=== PATIENT | female | born 1945 | race Caucasian/White ===

== ENCOUNTER 2017-11-09 13:24 | Inpatient (IN) | payer BC, MEDICARE ==
[2017-11-09] MEDS ORDERED: Diltiazem 125 MG in Sodium Chloride 0.9% 100 ML IVPB SCH ×2 (14:15→17:00)
[2017-11-09] MEDS ORDERED: Acetaminophen 325 MG TAB PO PRN ×2 (15:39→20:30)
[2017-11-09] MEDS ORDERED: Dextrose 5% in Water 1,000 ML IV PRN ×2 (15:39→20:30)
[2017-11-09] MEDS ORDERED: Dextrose 50% Abboject 50 ML SYRINGE SLOW IVP PRN ×2 (15:39→20:30)
[2017-11-09] MEDS ORDERED: HumaLOG 300 UNITS/3 ML VIAL SC PRN ×4 (15:39→20:31)
[2017-11-09] MEDS ORDERED: Senokot 8.6 MG TAB PO PRN (15:39)
[2017-11-09] MEDS ORDERED: Guaifenesin DM 100-10/5 ML UDCUP PO PRN ×2 (15:39→20:30)
[2017-11-09] MEDS ORDERED: Enoxaparin Sodium 60 MG/0.6 ML SYRINGE SC STA (15:45)
[2017-11-09 16:33] LABS: #Basophils 0.1 thou/uL (0.0-0.2); #Eosinphils 0.2 thou/uL (0.0-0.7); #Lymphocytes 2.8 thou/uL (1.20-3.40); #Monocytes 0.5 thou/uL (0.11-0.59); %Basophils 1.4 % (0.0-1.0); %Eosinophils 2.4 % (0.0-10.0); %Lymphocytes 42.7 % (21.0-51.0); %Monocytes 8.1 % (0.0-10.0); %Neutrophils 45.3 % (42.0-75.0); Hemoglobin 11.3 g/dL (12.0-16.0); Mean Corpuscular HGB CONC 32.1 g/dL (32.0-36.0); Mean Corpuscular Hemoglobin 27.2 pg (27.0-31.0); Mean Corpuscular Volume 84.7 fl (81.0-99.0); Mean Platelet Volume 8.4 fL (7.4-10.4); Platelet Count 238 thou/uL (130-400); RBC Distribution Width 15.2 % (11.5-14.5); Red Blood Cell (RBC) Count 4.16 mill/uL (4.20-5.40); White Blood Cell (WBC) Count 6.5 thou/uL (4.8-10.8)
[2017-11-09 16:39] LABS: INR-International Normal Ratio 0.9; PTT 24.5 SEC (22.9-36.1); Prothrombin Time 12.5 SEC (12.0-14.7)
[2017-11-09] MEDS ORDERED: Enoxaparin Sodium 80 MG/0.8 ML SYRINGE SC SCH (17:15)
--- NOTE | 2017-11-09 17:51 | HP ---
REASON FOR ADMISSION: Atrial flutter. HISTORY OF PRESENT ILLNESS: The patient gives history of having gone for cataract surgery yesterday at [facility] in [place]. Prior to her cataract procedure, they found her heart rate to be 134. She had an EKG done, which showed it to be atrial flutter. She was sent to [facility] Emergency Room. From there, she was sent to see her primary care physician for further workup and Cardiology consultation. Patient went to see Dr. Gagnon this morning. She was soon sent to [facility] for atrial flutter with RVR. Her ventricular rate was in the 130s, and was given Cardizem IV push and was placed on 5 mg-an-hour Cardizem and was transferred here to [facility] ER. No complaints of chest pain, palpitation, PND or orthopnea. She has no complaints of fever, cough, or expectoration. No prior cardiac workup including a stress test. PAST MEDICAL AND SURGICAL HISTORY: Hypertension, dyslipidemia, diabetes mellitus type 2, obesity, osteoarthritis, bilateral knee replacements, bilateral breast reduction surgery, appendectomy, tubal ligation, cystocele and rectocele repair, multiple skin cancers being removed, and a colonoscopy done at the age of 63 years was normal. CURRENT MEDICATIONS: Patient is on metformin 1 gram twice daily, losartan daily , Zocor daily. She takes a pill for osteoarthritis, which she cannot recall. [place] 3 fatty acids 1 tab daily. ALLERGIES: NEOSPORIN with which it breaks out in a rash. SOCIAL HISTORY: Does not abuse alcohol or drugs. No history of smoking. She lives by herself. FAMILY HISTORY: Mother in her 80s. She has had a history of heart failure , stroke and also had a PEG tube due to stroke. Father of massive OR at the age of 65 years. REVIEW OF SYSTEMS: The following complete review of systems was negative, unless otherwise mentioned in the HPI or below: Constitutional: Weight loss or gain, ability to conduct usual activities. Skin: Rash, itching. Eyes: Double vision, pain. ENT/Mouth: Nose bleeding, neck stiffness, pain, tenderness. Cardiovascular: Palpitations, dyspnea on exertion, orthopnea. Respiratory: Shortness of breath, wheezing, cough, hemoptysis, fever or night sweats. Gastrointestinal: Poor appetite, abdominal pain, heartburn, nausea, vomiting, constipation, or diarrhea. Genitourinary: Urgency, frequency, dysuria, nocturia. Musculoskeletal: Pain, swelling. Neurologic/Psychiatric: Anxiety, depression. Allergy/Immunologic: Skin rash, bleeding tendency. PHYSICAL EXAMINATION: GENERAL: The patient is a 72-year-old female who is currently not in any acute distress. VITAL SIGNS: Blood pressure 120/84, pulse 130 per minute, respiratory rate 16 per minute, temperature 97.9 degrees Fahrenheit, saturating 96% on room air. NECK: Supple, no elevated JVD. HEENT: Extraocular muscles intact. Pupils are reacting to light. Oral cavity , mucous membranes are moist. No exudates or congestion. CARDIOVASCULAR: S1, S2 heard. Irregular rhythm. RESPIRATORY: Air entry 1+ bilaterally. No rales or rhonchi. ABDOMEN: Soft, bowel sounds heard. No tenderness, rigidity or guarding. EXTREMITIES: No peripheral edema or calf tenderness. VASCULAR SYSTEM: Peripheral pulses 1+ bilateral. No ischemic ulcerations or gangrene. CENTRAL NERVOUS SYSTEM: No gross focal deficits seen. Patient is alert, awake , oriented well. PSYCHIATRIC: Patient's mood is euthymic. No hallucinations or delusions. LABORATORY AND X-RAY FINDINGS: EKG done shows atrial flutter with 2:1 block at 133 beats per minute. Chest x-ray shows mild cardiomegaly; otherwise no acute infiltrate. BNP is 140. First set of cardiac enzymes are negative. TSH 1.18. Albumin is 3.9. Magnesium is 1.8. Liver enzymes within normal limits. BUN 17, creatinine 0.7. Electrolytes are stable. There is no CBC or coags done. CLINICAL IMPRESSION AND PLAN: Patient will be admitted to telemetry for new- onset atrial flutter with rapid ventricular response. We will obtain an echo with 2D Doppler and keep her n.p.o. after midnight. I have discussed her findings with Dr. Brown who will plan on doing ablation in the morning. One dose of Lovenox 90 mg subcu will be given now. She will be on aspirin 81 mg daily. She is currently on 7.5 mg per hour of Cardizem drip and will continue the same. A small dose of Lopressor 12.5 mg twice daily will be given as well. Patient most likely will need outpatient cardiac workup including stress test due to multiple risk factors with Dr. Ovalle as an outpatient. His office will call the patient in 4-6 weeks once she is stable from her flutter for now. We will continue to closely monitor her on telemetry floor. NANCY
[2017-11-09 18:22] VITALS: BMI 40.2
[2017-11-09 18:51] LABS: #Basophils 0.1 thou/uL (0.0-0.2); #Eosinphils 0.2 thou/uL (0.0-0.7); #Lymphocytes 2.8 thou/uL (1.20-3.40); #Monocytes 0.5 thou/uL (0.11-0.59); %Basophils 1.8 % (0.0-1.0); %Eosinophils 2.4 % (0.0-10.0); %Lymphocytes 42.3 % (21.0-51.0); %Neutrophils 45.5 % (42.0-75.0); Hemoglobin 11.1 g/dL (12.0-16.0); Mean Corpuscular HGB CONC 31.6 g/dL (32.0-36.0); Mean Corpuscular Hemoglobin 26.7 pg (27.0-31.0); Mean Corpuscular Volume 84.6 fl (81.0-99.0); Mean Platelet Volume 8.4 fL (7.4-10.4); Platelet Count 239 thou/uL (130-400); RBC Distribution Width 15.1 % (11.5-14.5); Red Blood Cell (RBC) Count 4.14 mill/uL (4.20-5.40); White Blood Cell (WBC) Count 6.5 thou/uL (4.8-10.8)
[2017-11-09] MEDS ORDERED: Prevnar 13-Val Conj/PF 0.5 ML SYRINGE IM ONE (19:00)
[2017-11-09 19:10] LABS: Anion Gap 10 mmol/L (10-20); BUN (Urea Nitrogen) 15 mg/dL (9.8-20.1); Calc. Creatinine Clearance 99 mL/min (70-130); Calcium 9.9 mg/dL (7.8-10.44); Carbon Dioxide 25 mmol/L (23-31); Chloride 107 mmol/L (98-107); Estimated GFR-MDRD 83; Glucose 104 mg/dL (83-110); PTT 25.1 SEC (22.9-36.1); Prothrombin Time 12.8 SEC (12.0-14.7); Sodium 138 mmol/L (136-145)
--- NOTE | 2017-11-09 20:00 | CON-2 ---
DATE OF CONSULTATION: 11/09/2017 RESIDENT: Melina Lorenzana M.D., PGY-2. ATTENDING: Parth Ovalle M.D. REASON FOR CONSULTATION: New onset atrial flutter. HISTORY OF PRESENT ILLNESS: The patient is a 72-year-old female with past history of hypertension, diabetes, and hyperlipidemia, who was incidentally noted to have atrial flutter on a preoperative evaluation for cataract surgery performed at an outside hospital yesterday. The patient was noted to have a pulse in the 130s. She was completely asymptomatic at this time. She denied any chest pain/pressure, dyspnea, diaphoresis, palpitations. She was transferred from the outside hospital to [facility] Emergency Department where she was given IV Cardizem which did improve her heart rate. She was discharged from the emergency department and instructed to follow up with her primary care provider the following day. At her primary care provider's office today, her pulse was noted to be 136. She was still asymptomatic at this time. She was directed to the [place] Emergency Department where she was given a bolus of Cardizem and started on a Cardizem drip. She was then transferred here. She received another Cardizem bolus and was started on a Cardizem drip at a rate of 5, which she is currently on. Her heart rate is controlled and she remains asymptomatic PAST MEDICAL HISTORY: 1. Diabetes mellitus type 2. 2. Hypertension. 3. Hyperlipidemia. 4. Osteoarthritis. 5. Gastroesophageal reflux disease. 6. Allergic rhinitis. 7. History of skin cancer, status post excision. ALLERGIES: NEOSPORIN, which causes blistering. MEDICATIONS: 1. Omeprazole 20 mg daily. 2. Calset plus. 3. Fish oil 2000 mg daily. 4. Colace 300 mg daily. 5. Biotin 1 mg q.a.m. 6. Multivitamin. 7. Simvastatin 20 mg daily. 8. Ana 180 mg daily p.r.n. 9. Metformin 1000 mg p.o. b.i.d. 10. Alendronate 70 mg weekly. 11. Losartan 50 mg daily. PAST SURGICAL HISTORY: 1. Bilateral total knee arthroplasty. 2. Oral surgery. 3. Appendectomy. 4. Breast reduction. 5. Panniculectomy. SOCIAL HISTORY: The patient denies tobacco, alcohol, and drug use. 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 REVIEW OF SYSTEMS: Ten point review of systems is negative aside from what is listed in the history of present illness. PHYSICAL EXAMINATION: VITAL SIGNS: Temperature 97.8, blood pressure 113/67, pulse 73, respirations 17 , pulse ox 96% on room air. GENERAL: The patient is alert and oriented x3, in no apparent distress. HEENT: Extraocular muscles are intact. NECK: Supple. No thyromegaly. CARDIOVASCULAR: Irregular rhythm, regular rate. No murmurs, rubs or gallops. Radial pulses 2+. LUNGS: Clear to auscultation bilaterally. ABDOMEN: Soft, nontender to palpation. No organomegaly. EXTREMITIES: No cyanosis or peripheral edema. MUSCULOSKELETAL: Normal bulk and tone. NEUROLOGIC: Cranial nerves II-XII intact grossly. LABORATORY DATA: 1. CMP: Sodium 140, potassium 4.3, chloride 106, carbon dioxide 24, BUN 17, creatinine 0.73, glucose 106, calcium 9.5, phosphorus 2.2, magnesium 1.8, total bilirubin 0.3, AST 16, ALT 18, alkaline phosphatase 58. BNP 140.3, total protein 7.1, albumin 3.9, globulin 3.2, TSH 1.1855. 2. Cardiac enzymes: CK-MB 1.2, troponin less than 0.010. 3. Coagulation panel: PT 13.0, INR 1.0, PTT 23.6. EKG consistent with atrial flutter. ASSESSMENT AND PLAN: The patient is a 72-year-old asymptomatic female with a history of hypertension, hyperlipidemia, diabetes, who presents with new onset atrial flutter. Atrial flutter: We will give the patient one dose of p.o. Cardizem 180 mg now and titrate the patient off of the cardizem drip. Electrophysiology has been consulted and plan is for ablation tomorrow. Given that the patient has a CHADS VASC score of 4, we will initiate anticoagulation with therapeutic Lovenox. Cardiology will continue to follow the patient during her hospitalization. [facility] MED[facility] CENTERPeyton
[2017-11-09] MEDS ORDERED: Famotidine 20 MG TAB PO SCH (21:00)
[2017-11-09] MEDS: Famotidine 20 MG TAB PO SCH (21:24)
[2017-11-09] MEDS: Senokot 8.6 MG TAB PO PRN (21:25)
[2017-11-10 05:42] LABS: Free T4 (Free Thyroxine) 1.05 ng/dL (0.70-1.48)
[2017-11-10] MEDS: Famotidine 20 MG TAB PO SCH ×2 (06:12→21:30)
[2017-11-10] MEDS ORDERED: PHENYLEPHRINE-NS 100 MCG/ML 10 ML SYRINGE ONE (13:56)
--- NOTE | 2017-11-10 14:46 | PDOC.PN ---
- Subjective Encounter Start Date: 11/10/17 Encounter Start Time: 09:00 Subjective: no c/o palp or chest pain - Objective Resuscitation Status: Resuscitation Status FULL:Full Resuscitation MAR Reviewed: Yes Vital Signs & Weight: Vital Signs (12 hours) Temp Pulse Resp BP Pulse Ox 11/10/17 11:49 97.9 F 65 18 135/65 95 11/10/17 08:00 98 F 69 18 95 11/10/17 07:35 98 F 69 18 115/59 L 95 11/10/17 04:00 98.3 F 89 20 124/60 95 Weight Weight 192 lb 3.2 oz I&O: 11/09/17 11/10/17 11/11/17 06:59 06:59 06:59 Intake Total 1059 Output Total 1175 Balance -116 Result Diagrams: 11/09/17 18:25 11/09/17 18:25 Additional Labs: Accuchecks 11/10/17 11/10/17 11/09/17 11:36 06:33 19:52 POC Glucose 124 H 143 H 144 H 11/09/17 18:29 POC Glucose 119 H Phys Exam - Physical Examination HEENT: PERRLA, moist MMs Neck: no JVD, supple Respiratory: no wheezing, no rales Cardiovascular: RRR, no significant murmur Gastrointestinal: soft, non-tender, positive bowel sounds Musculoskeletal: no edema, pulses present Neurological: non-focal, moves all 4 limbs Psychiatric: A&O x 3 Dx/Plan (1) Atrial flutter Code(s): I48.92 - UNSPECIFIED ATRIAL FLUTTER Status: Acute (2) DM type 2 (diabetes mellitus, type 2) Status: Chronic Qualifiers: Diabetes mellitus complication status: with unspecified complications Diabetes mellitus halfway insulin use: without survey manager use Qualified Code( s): E11.8 - Type 2 diabetes mellitus with unspecified complications (3) HTN (hypertension) Code(s): I10 - ESSENTIAL (PRIMARY) HYPERTENSION Status: Chronic Qualifiers: Hypertension type: essential hypertension Qualified Code(s): I10 - Essential (primary) hypertension (4) Dyslipidemia Code(s): E78.5 - HYPERLIPIDEMIA, UNSPECIFIED Status: Chronic (5) Obesity Code(s): E66.9 - OBESITY, UNSPECIFIED Status: Chronic Qualifiers: Body mass index: BMI 40.0-44.9 - Plan for EP studies and possible ablation -: got one dose lovenox last night -: post procedure will start newer anticoagulants -: echo pending, will get SCOTT prior to EPS -: hemostable, is on cardizem drip * . Review of Systems - Medications/Allergies Allergies/Adverse Reactions: Allergies Allergy/AdvReac Type Severity Reaction Status Date / Time bacitracin Allergy Verified 11/09/17 14:06 Medications: Current Medications Acetaminophen (Tylenol) 650 mg PO Q4H PRN PRN Reason: Headache/Fever or Pain Last Admin: 11/09/17 21:25 Dose: 650 mg Dextrose/Water (Dextrose 50%) 25 gm SLOW IVP PRN PRN PRN Reason: Hypoglycemia Famotidine (Pepcid) 20 mg PO BID DALE Last Admin: 11/10/17 06:12 Dose: 20 mg Glucagon (Glucagon) 1 mg IM PRN PRN PRN Reason: Hypoglycemia Guaifenesin/Dextromethorphan (Robitussin Dm) 15 ml PO Q4H PRN PRN Reason: Cough Diltiazem HCl 125 mg/ Sodium (Chloride) 125 mls @ 7.5 mls/hr IVPB INF DALE; 7.5 MG/HR PRN Reason: Protocol Dextrose/Water (D5w) 1,000 mls @ 0 mls/hr IV .Q0M PRN; As Directed PRN Reason: Hypoglycemia Insulin Human Lispro (Humalog) 0 units SC .MODERATE SLIDING SC PRN PRN Reason: Moderate Correctional Scale Insulin Human Lispro (Humalog) 0 units SC .BEDTIME SLIDING SC PRN PRN Reason: Bedtime Correctional Scale Senna (Senokot) 2 tab PO HSPRN PRN PRN Reason: Constipation Last Admin: 11/09/17 21:25 Dose: 2 tab Sodium Chloride (Flush - Normal Saline) 10 ml IVF Q12HR DALE Last Admin: 11/10/17 08:56 Dose: Not Given Sodium Chloride (Flush - Normal Saline) 10 ml IVF PRN PRN PRN Reason: Saline Flush
[2017-11-10] MEDS ORDERED: Heparin 10,000 UNITS/1 ML VIAL ONE (15:40)
[2017-11-10] MEDS ORDERED: Propofol 500 MG/50 ML VIAL ONE (15:41)
[2017-11-10] MEDS ORDERED: Fentanyl 100 MCG/2 ML VIAL ONE ×2 (15:41→16:17)
[2017-11-10] MEDS ORDERED: Midazolam HCl 2 mg/2 ml Vial ONE (16:17)
[2017-11-10] MEDS ORDERED: Ketamine 50 MG/ML VIAL ONE (16:18)
[2017-11-10] MEDS ORDERED: DOPamine 400 MG/D5W 250 ML 250 ML ONE (17:19)
--- NOTE | 2017-11-10 18:09 | CON ---
DATE OF CONSULTATION: 11/09/2017 ELECTROPHYSIOLOGY CONSULTATION REPORT REFERRING PHYSICIAN: Dr. Charmaine Murphy HISTORY: I am seeing Ms. 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 Her problems are: 1. Newly found atrial flutter with rapid ventricular rates. 2. No prior history of coronary artery disease or heart attack. 3. Coronary artery receptors. A. Hypertension. B. Hyperlipidemia. C. Type 2 diabetes. D. Elevated BMI. 4. History of gastroesophageal reflux disease. ALLERGIES: NEOSPORIN, CODEINE. MEDICATIONS: At home include plus fish oil, Colace, Biotin, multivitamin , simvastatin, Ana, metformin, alendronate, losartan. SUBJECTIVE: Ms. Blake is here due to she was found to be in rapid flutter at the time of upcoming glaucoma surgery, she was hence canceled and she was referred to us. Her rates were rapid in the ER and she was placed on Cardizem drip. Her rate improved with that. She only has had mild symptoms. She has mild chronic dyspnea, but not any worse than usual. She has no significant sensational palpitations, no dizziness or loss of consciousness. No stroke- like symptoms, no fever, chills or cough. The rest of the 12 point system also overall unremarkable apart from the visual blurring, for hence glaucoma. SOCIAL HISTORY: The patient denies smoking, ETOH or drug abuse. FAMILY HISTORY: Noncontributory. PAST SURGICAL HISTORY: Significant for bilateral knee arthroplasty, oral surgery, appendectomy, breast reduction surgery, and hemicolectomy. PAST MEDICAL HISTORY: Allergic rhinitis, GERD, history of skin cancer, status post resection, osteoarthritis. OBJECTIVE: VITAL SIGNS: Blood pressure is initially 130/67, heart rates are 73 went to 139 at times, respirations 15, oxygen saturation is 96% on room air. GENERAL: She is alert and oriented woman in no apparent distress. NECK: Supple. Jugular veins are not distended. CHEST: Coarse without crackles. CARDIOVASCULAR: Heart sounds are regular rate and rhythm. No murmur or gallop. ABDOMEN: Benign. Bowel sounds positive. EXTREMITIES: Lower extremities without edema, clubbing or cyanosis. DATABASE: The EKG reviewed reveals occasional 2:1 atrial flutter, but at times 4:1 atrial flutter is also observed. Probably it could be consistent with cavotricuspid isthmus dependent typical morphology. LABORATORY DATA: White count is 6.5, hemoglobin is 11.1, platelet count is 239. INR is 1. Sodium 138, potassium 4, BUN 15, creatinine 0.69. ASSESSMENT AND PLAN: Ms. Blake is a pleasant 72-year-old woman with prior history of hypertension, diabetes, hyperlipidemia, elevated BMI, but no prior cardiac history. She presented with new onset of atrial flutter, which appears to be typical by EKG. We discussed the etiology of the mechanism of atrial flutter associated with stroke as well as cardiomyopathy with persistently rapid heart rates. We also discussed the potential treatment options including rate control and anticoagulation versus anticoagulation and cardioversion or radiofrequency ablation procedure. Eventually she would prefer to have the more definitive treatment performed which would be the ablation. We did discuss risks including bleeding, recurrent, tamponade, pneumothorax. We will plan to schedule her for tomorrow. Thank you again for allowing me to participate in the care of this patient. NANCY
[2017-11-10] MEDS ORDERED: Diltiazem 125 MG in Sodium Chloride 0.9% 100 ML IVPB PRN (18:36)
[2017-11-10] MEDS ORDERED: Bisacodyl 5 MG TAB PO PRN (18:42)
[2017-11-10] MEDS ORDERED: Nitroglycerin 0.4 MG TAB (25 Tab Bottle) SL PRN (18:42)
[2017-11-10] MEDS ORDERED: Bisacodyl 10 MG SUPP PR PRN (18:42)
[2017-11-10] MEDS ORDERED: Ondansetron HCl/PF 4 MG/2 ML Vial IVP PRN (18:42)
[2017-11-10] MEDS ORDERED: Mag-Al 1200 mg/1200 mg/30 ML UDCUP PO PRN (18:42)
[2017-11-10] MEDS ORDERED: Silver Sulfadiazine 1% Cream 50 GM JAR TOP PRN (18:42)
[2017-11-10] MEDS ORDERED: diphenhydrAMINE 25 MG CAP PO PRN (18:42)
[2017-11-10] MEDS ORDERED: Temazepam 15 MG CAP PO PRN (18:42)
[2017-11-10] MEDS ORDERED: traMADol HCl 50 MG TAB PO PRN (18:42)
[2017-11-10] MEDS: Senokot 8.6 MG TAB PO PRN (22:06)
--- NOTE | 2017-11-11 00:35 | CCLSPC ---
DATE OF SERVICE: 11/10/2017 ELECTROPHYSIOLOGY STUDY AND RADIOFREQUENCY ABLATION REPORT REFERRING PHYSICIAN: Dr. Murphy. REASON FOR PROCEDURE: Ms. Blake is a 72-year-old female with prior history of hypertension, diabete s, elevated BMI, who presenting with sustained atrial flutter. EKG is suggestive of typical atrial f lutter in appearance. PROCEDURE IN DETAIL: The patient underwent a SCOTT prior to procedure demonstrating no intracardiac cl ots. Following that, after adequate sedation achieved, both femoral areas were anesthetized using rodriguez bcutaneous lidocaine. Right femoral vein was accessed x2 and two 8-Croatian short sheaths were introdu terri. Through this a decapolar ----- coronary sinus and an EP study was performed. Initial findings, baseline cycle length is 482 milliseconds. She was in atrial flutter, QRS duration 82 milliseconds, QT 331 milliseconds. Overdrive pacing maneuvers were performed demonstrating post-pacing intervals longer than tachycardia cycle lengths around the isthmus area ----- in the right atrium. The activat ion mapping was performed demonstrating initial earliest activation of this atrial flutter in the rig ht atrial septal area. Overdrive pacing and mapping at this area demonstrate also, no perfect ------ . Further overdrive pacing maneuvers have terminated flutter, which was not re-inducible. Has a typ ical appearance of the initial flutter, cavotricuspid isthmus ablation was performed during ----- pac ing achieving complete block of the cavotricuspid isthmus. The post-pacing intervals were longest by the ablation line about 150 milliseconds to 160 milliseconds. The shorter by the lateral wall sugge stive of cavotricuspid isthmus block. Following that, basic EP study demonstrated abnormal sinus nod e recovery time of 1235 which was corrected ----- 500 milliseconds. AV Wenckebach cycle length was 3 50 milliseconds. AV ERP was 600/280 and no dual AV chantal physiology was present. No accessory pathw ay, concentric retrograde VA conduction and no reinduction of the atrial flutter was achievable. Dop amine challenge did not change the cavotricuspid isthmus block appearance. CONCLUSION: 1. Successful cavotricuspid isthmus ablation. 2. Likely presence with atypical atrial flutter also, which was easily pace terminated. 3. Abnormal sinus node recovery function, although the patient was initiated on diltiazem. PLAN: 1. Consider monitoring further atrial flutter appears left atrial flutter ablation should be conside red versus pacing with atrial overdrive capacities could be also considered. 2. Continue anticoagulation intermediate term. POS: MAXIMILIANO
[2017-11-11] MEDS: Famotidine 20 MG TAB PO SCH (08:55)
[2017-11-11 09:00] VITALS: BP 124/59; TEMP 97.8
--- NOTE | 2017-11-11 10:34 | PDOC.PN ---
- Subjective Encounter Start Date: 11/11/17 Encounter Start Time: 07:00 Subjective: no chest pain/palp or sob -: feels good - Objective Resuscitation Status: Resuscitation Status FULL:Full Resuscitation MAR Reviewed: Yes Vital Signs & Weight: Vital Signs (12 hours) Temp Pulse Resp BP Pulse Ox 11/11/17 08:45 97.8 F 96 18 124/59 L 98 11/11/17 04:00 98.6 F 93 18 141/73 H 95 11/11/17 00:00 97.6 F 98 18 164/72 H 98 Weight Weight 191 lb 1.6 oz I&O: 11/10/17 11/11/17 11/12/17 06:59 06:59 06:59 Intake Total 1059 960 Output Total 1175 2350 Balance -116 -1390 Result Diagrams: 11/09/17 18:25 11/09/17 18:25 Additional Labs: Accuchecks 11/11/17 11/10/17 11/10/17 05:58 20:44 18:43 POC Glucose 177 H 110 124 H 11/10/17 11:36 POC Glucose 124 H Phys Exam - Physical Examination HEENT: PERRLA, moist MMs Neck: no JVD, supple Respiratory: no wheezing, no rales Cardiovascular: RRR, no significant murmur Gastrointestinal: soft, non-tender, positive bowel sounds Musculoskeletal: no edema, pulses present Neurological: non-focal, moves all 4 limbs Psychiatric: normal affect, A&O x 3 Dx/Plan (1) Atrial flutter Code(s): I48.92 - UNSPECIFIED ATRIAL FLUTTER Status: Resolved Comment: s/p cavotricuspid isthmus ablation 11/10/2017 (2) DM type 2 (diabetes mellitus, type 2) Status: Chronic Qualifiers: Diabetes mellitus complication status: with unspecified complications Diabetes mellitus senior living insulin use: without terminal system operator use Qualified Code( s): E11.8 - Type 2 diabetes mellitus with unspecified complications (3) HTN (hypertension) Code(s): I10 - ESSENTIAL (PRIMARY) HYPERTENSION Status: Chronic Qualifiers: Hypertension type: essential hypertension Qualified Code(s): I10 - Essential (primary) hypertension (4) Dyslipidemia Code(s): E78.5 - HYPERLIPIDEMIA, UNSPECIFIED Status: Chronic (5) Obesity Code(s): E66.9 - OBESITY, UNSPECIFIED Status: Chronic Qualifiers: Body mass index: BMI 40.0-44.9 - Plan hemostable -: has been in sinus rhythm after ablation -: on xarelto and oral cardizem, dc valsartan -: dc pt home -: to f/u with and as adv. * .
--- NOTE | 2017-11-11 12:26 | PDOC.CTH ---
Cardiology Progress Note - Subjective The pt seen and examined. No overnight events. No cardiac complaints. - Objective Vital Signs Temp Pulse Resp BP Pulse Ox 11/11/17 08:45 97.8 F 96 18 124/59 L 98 11/11/17 08:30 97.8 F 96 18 11/11/17 04:00 98.6 F 93 18 141/73 H 95 Weight 191 lb 1.6 oz 11/10/17 11/11/17 11/12/17 06:59 06:59 06:59 Intake Total 1059 960 Output Total 1175 2350 Balance -116 -1390 - Physical Examination General/Neuro: alert & oriented x3 Neck: no JVD present Lungs: CTA Heart: RRR Abdomen: soft Extremities: other: (No edema) - Telemetry Telemetry Rhythm: SR 80-90s - Labs Result Diagrams: 11/09/17 18:25 11/09/17 18:25 - Assessment/Plan 1. New onset Atrial flutter w/ RVR - s/p Ablation on 11/09/17; remains in SR with diltiazem 180mg daily and Xarelto 20mg 2. HTN - stable with current medication 3. Hyperlipidemia - Statin with home dose will be resumed 4. DM type 2 - managed by PCP 5. Obesity MAR reviewed * From Cardiac standpoints, the pt is stable to d/c home; the pt will f/u with Dr Brown within [address] Ovalle within 2-4 wks. Review of Systems - Review of Systems Constitutional: reports: no symptoms reported EENTM: reports: no symptoms reported Respiratory: reports: no symptoms reported Cardiac (ROS): reports: no symptoms reported ABD/GI: reports: no symptoms reported : reports: no symptoms reported Musculoskeletal: reports: no symptoms reported Skin: reports: no symptoms reported
--- NOTE | 2017-11-11 15:19 | ECHO ---
PROCEDURE NOTE: Date: 11/10/17 PROCEDURE: Transesophageal echocardiogram (SCOTT). REASON FOR PROCEDURE: Ms. Blake is a 72-year-old woman who presented with atrial flutter with rapid rates. She is here for SCOTT prior to ablation procedure to rule out intracardiac clots. PROCEDURE IN DETAIL: The patient received deep sedation per anesthesia specialist. After adequate level of sedation achieved, the standard SCOTT probe was passed into the esophagus without difficulty. Patient tolerated procedure well. No complications. RESULTS: Left atrium is normal in size, 3.6 cm, and horizontal diameter. Left atrial appendage is well visualized and contains no clots. Left atrial appendage velocities up to 50 cm/second, which is adequate. Four of four pulmonary veins were visualized with adequate velocities. Interatrial septum is free of defect. Mitral valve has trivial regurgitation only. Left ventricular function and size is normal. No significant LVH is seen. The right-sided chambers are nondilated. Aortic valve has three leaflets without regurgitation or stenosis. Pulmonic valve also not regurgitant. Right-sided chambers normal in size. The visualized portion of the ascending and descending aorta are without aneurysm or dissection. Aortic atheroma was noted of the aortic arch area, although it appears to be adherent. The pericardial space is with trivial effusion versus fat pad. CONCLUSION: 1. No intracardiac clots. 2. Normal left ventricular systolic function. 3. No significant valvular heart disease. 4. Adherent aortic atheroma. PLAN: Proceed with ablation procedure. NANCY
[2017-11-11] MEDS ORDERED: Rivaroxaban 10 MG TAB PO SCH (21:00)
--- NOTE | 2017-11-11 23:26 | DIS ---
DATE OF ADMISSION: 11/09/2017 DATE OF DISCHARGE: 11/11/2017 DISCHARGE DISPOSITION: To home. PRIMARY DISCHARGE DIAGNOSES: Atrial flutter, status post cavotricuspid isthmus ablation done on 11/10/2017, by Dr. Stephanie Avery. SECONDARY DISCHARGE DIAGNOSES: Diabetes mellitus type 2, hypertension, dyslipidemia and obesity. PROCEDURES DONE DURING HOSPITALIZATION: Echo with 2D Doppler done showed an ejection fraction of 55% to 60%. This is a transthoracic echo that I am dictating now. PA systolic pressures were 33 mmHg. Left atrial size was 4.54 cm. A transesophageal echo done showed no intracardiac clots. Normal LV systolic function. No 'significant valvular heart disease was seen, Angelina aortic atheroma was incidentally seen. The patient has had electrophysiology studies with radiofrequency ablation done of cavotricuspid isthmus. Discharge hemoglobin and hematocrit 11 and 35, platelet count 239. PT/INR 12 and 1.0. Discharge PTT is 25. Free T3 1.0 and free T4 2.5. Discharge BUN and creatinine is 15 and 0.6. INPATIENT CONSULTS: Dr. Stephanie Avery for Electrophysiology and Dr. Ovalle for Cardiology. DISCHARGE PLAN: The patient to follow up with Dr. Stephanie Avery in [address] Ovalle in 4 weeks and primary care physician in 1 week. BRIEF COURSE DURING HOSPITALIZATION: The patient initially got admitted for atrial flutter with ventricular rate going up to 134. She was given multiple AV chantal medications to control the rhythm. Finally, patient was placed on Cardizem drip at 7.5 mg an hour. She has had consultation with Dr. Stephanie Avery for Electrophysiology. The patient had transthoracic and transesophageal echo, both done, which has not revealed any intracardiac thrombus. She has had cavotricuspid isthmus ablation done by Dr. Stephanie Avery. Post-ablation, the patient has been in sinus rhythm. She was placed on Xarelto and oral Cardizem at 180 mg daily. She needs to follow up with Dr. Stephanie Avery in [address] Ovalle in 4 weeks. She likely will need outpatient stress test as patient has multiple risk factors and has never had one in her life so far. Please see a [id number] documentation on [facility] for the day of discharge. [facility]
== END 2017-11-11 12:26 | disposition home or self-care (01) | DRG 274 ==
LOC: ERS 13:24 → 2NO 14:55 → ERS 15:51
PROVIDERS: ADMIT Internal Medicine; ATTEND Internal Medicine
PROC: 02583ZZ Destruction of Conduction Mechanism, Percutaneous Approach (ICD-10-PCS; principal; 2017-11-10)
PROC: 02K83ZZ Map Conduction Mechanism, Percutaneous Approach (ICD-10-PCS; 2017-11-10)
PROC: 4A023FZ Measurement of Cardiac Rhythm, Percutaneous Approach (ICD-10-PCS; 2017-11-10)
PROC: 4A0234Z Measurement of Cardiac Electrical Activity, Percutaneous Approach (ICD-10-PCS; 2017-11-10)
PROC: B24BZZ4 Ultrasonography of Heart with Aorta, Transesophageal (ICD-10-PCS; 2017-11-10)
DX: I48.92 Unspecified atrial flutter (principal); Z68.41 Body mass index [BMI] 40.0-44.9, adult; E11.9 Type 2 diabetes mellitus without complications; E78.5 Hyperlipidemia, unspecified; E66.9 Obesity, unspecified; I10 Essential (primary) hypertension; M19.90 Unspecified osteoarthritis, unspecified site; Z96.653 Presence of artificial knee joint, bilateral; Z85.828 Personal history of other malignant neoplasm of skin
CPT/HCPCS: 36415; 36416; 76942; 84439; 84481; 85025; 93005; 93010; 93306; 93312; 93613; 93621; 93623; 93653; 96365; 96376; A4216; C1730; C1769; J1265; J1644; J1650; J2250; J2704; J3010; J7050

== ENCOUNTER 2017-11-24 20:39 | Observation (INO) | payer BC, MEDICARE ==
[2017-11-24] MEDS ORDERED: Diltiazem HCl 125 MG, Admixture Fee 1 EACH in Sodium Chloride 0.9% 100 ML IVPB SCH (21:00)
[2017-11-24] MEDS ORDERED: Sodium Chloride 0.9% 1,000 ML IV SCH (23:25)
[2017-11-25] MEDS ORDERED: Acetaminophen 325 MG TAB PO PRN (02:22)
[2017-11-25] MEDS ORDERED: Dextrose 5% in Water 1,000 ML IV PRN (03:41)
[2017-11-25] MEDS ORDERED: Dextrose 50% Abboject 50 ML SYRINGE SLOW IVP PRN (03:41)
[2017-11-25] MEDS ORDERED: HumaLOG 300 UNITS/3 ML VIAL SC PRN ×2 (03:41)
[2017-11-25] MEDS ORDERED: traMADol HCl 50 MG TAB PO PRN (03:47)
[2017-11-25] MEDS ORDERED: Acetaminophen 650 MG Suppository PR PRN (03:47)
[2017-11-25] MEDS ORDERED: Bisacodyl 5 MG TAB PO PRN (03:47)
[2017-11-25] MEDS ORDERED: Mag-Al 1200 mg/1200 mg/30 ML UDCUP PO PRN (03:47)
[2017-11-25] MEDS ORDERED: Ondansetron HCl/PF 4 MG/2 ML Vial IVP PRN (03:47)
[2017-11-25] MEDS ORDERED: HYDROcodone/Acetaminophen 5/325 mg Tablet PO PRN (03:47)
[2017-11-25] MEDS ORDERED: cloNIDine 0.1 MG TAB PO PRN (03:47)
[2017-11-25] MEDS ORDERED: hydrALAZINE 20 MG/ML VIAL SLOW IVP PRN (03:47)
[2017-11-25] MEDS ORDERED: Nitroglycerin 0.4 MG TAB (25 Tab Bottle) SL PRN (03:47)
[2017-11-25] MEDS ORDERED: Senokot 8.6 MG TAB PO PRN (03:47)
[2017-11-25 06:03] VITALS: BMI 40.1
[2017-11-25 07:24] LABS: Hemoglobin 10.6 g/dL (12.0-16.0); Mean Corpuscular HGB CONC 31.4 g/dL (32.0-36.0); Mean Corpuscular Hemoglobin 26.2 pg (27.0-31.0); Mean Corpuscular Volume 83.5 fl (81.0-99.0); Mean Platelet Volume 8.3 fL (7.4-10.4); Platelet Count 247 thou/uL (130-400); RBC Distribution Width 14.9 % (11.5-14.5); Red Blood Cell (RBC) Count 4.05 mill/uL (4.20-5.40); White Blood Cell (WBC) Count 5.6 thou/uL (4.8-10.8)
[2017-11-25 07:45] LABS: Anion Gap 13 mmol/L (10-20); BUN (Urea Nitrogen) 10 mg/dL (9.8-20.1); Calc. Creatinine Clearance 97 mL/min (70-130); Calcium 9.4 mg/dL (7.8-10.44); Carbon Dioxide 25 mmol/L (23-31); Chloride 104 mmol/L (98-107); Estimated GFR-MDRD 82; Glucose 137 mg/dL (83-110); Potassium 3.9 mmol/L (3.5-5.1); Sodium 138 mmol/L (136-145)
--- NOTE | 2017-11-25 07:55 | HP ---
DATE OF ADMISSION: 11/24/2017 PRIMARY CARE PHYSICIAN: Camron Gagnon M.D. CHIEF COMPLAINT: Tachycardia on the home machine. HISTORY OF PRESENT ILLNESS: Ms. Blake is a pleasant 72-year-old female, who was recently admitted t o our facility from 11/09/2017 to 11/11/2017, and was diagnosed and treated for atrial flutter. She underwent ablation of the cavotricuspid isthmus by Dr. Bronw on 11/10/2017, and was discharged home on Cardizem as well as Xarelto. She was seen by Cardiology, Dr. Ovalle as well. She came to the emergency room today when she checked her blood pressure at home and her machine christopher stered a heart rate of 150s. She reports that she has seen Dr. Brown earlier this week and at that ti ca, everything was within normal limits. She presented to the emergency room and upon presentation, her heart rate was 85 and irregular, and s he was found to be back in atrial fibrillation. She presented to [facility], where she was given Cardizem bolus and started on Cardizem drip and transferred to our facility. By the ti ca she presented to our facility, she was converted to normal sinus rhythm. She is now being admitte d for further evaluation and care. The patient denies any symptoms related to her atrial fibrillation that happened at home today. She has no chest pain, shortness of breath, or palpitations. She denies any dizziness. PAST MEDICAL HISTORY: 1. Atrial flutter status post ablation on 11/10/2017. 2. Diabetes mellitus type 2. 3. Hypertension. 4. Dyslipidemia. 5. Obesity. PAST SURGICAL HISTORY: 1. Atrial flutter ablation. 2. Bilateral knee replacement. 3. Bilateral breast reduction surgery. 4. Appendectomy. 5. Tubal ligation. 6. Cystocele and rectocele repair. 7. Multiple skin cancers removal. 8. Colonoscopy. ALLERGIES: Include NEOSPORIN, which causes a rash. SOCIAL HISTORY: No history of drug, tobacco, or alcohol abuse. She lives by herself. FAMILY HISTORY: Mother in her 80s. Mother has history of heart failure, stroke, and as well as a PEG tube due to stroke. Father of massive HI at the age of 65. CURRENT HOME MEDICATIONS: Multivitamin daily, biotin daily, omeprazole 1 tablet daily, omega 3 fish oil 1000 mg daily, calcium plus vitamin D daily, fexofenadine 1 tablet daily, docusate daily, alendro john 70 mg every 7 days, Cardizem CD 180 mg daily, simvastatin 20 mg daily, Xarelto 20 mg at bedtime, metformin 1000 mg p.o. b.i.d. REVIEW OF SYSTEMS: The following complete review of systems was negative, unless otherwise mentioned in the HPI or below: Constitutional: Weight loss or gain, ability to conduct usual activities. Sk in: Rash, itching. Eyes: Double vision, pain. ENT/Mouth: Nose bleeding, neck stiffness, pain, te nderness. Cardiovascular: Palpitations, dyspnea on exertion, orthopnea. Respiratory: Shortness of breath, wheezing, cough, hemoptysis, fever or night sweats. Gastrointestinal: Poor appetite, abdom inal pain, heartburn, nausea, vomiting, constipation, or diarrhea. Genitourinary: Urgency, frequenc y, dysuria, nocturia. Musculoskeletal: Pain, swelling. Neurologic/Psychiatric: Anxiety, depressio n. Allergy/Immunologic: Skin rash, bleeding tendency. LABORATORY DATA: CBC shows hemoglobin at 11.0, which was 11.1 on 11/09/2017, otherwise unremarkable. Serum chemistries: Sodium 140, potassium 4.1, bicarbonate 22, BUN 11, creatinine 0.80, blood sugar of 176. Liver enzymes within normal limits. BNP is not drawn. Troponin less than 0.010 with sahara l CK-MB. Chest x-ray by my review has no evidence to suggest pulmonary edema or infiltrates. A 12-lead EKG by my review shows normal sinus rhythm at 80 beats per minute with premature atrial complexes. PHYSICAL EXAMINATION: VITAL SIGNS: Temperature 97, pulse of 75, respirations 20, saturating 97% on room air, blood pressur e 134/63. GENERAL: No acute distress, awake, alert, oriented x3. She is resting comfortably in bed. HEENT: Mucous membrane is moist and pink. No oropharyngeal exudate or erythema. Head is normocepha lic, atraumatic. Pupils equal, reactive to light and accommodation. Extraocular movement intact. NECK: Supple without any lymphadenopathy, JVD, or bruit. CHEST: Clear to auscultation without any wheezing, rales, or rhonchi. Rate and rhythm is regular wi thout any murmur, rubs, or gallops. ABDOMEN: Obese, soft, nontender, nondistended. Positive bowel sounds. EXTREMITIES: There is free of any cyanosis, clubbing, or edema. NEUROLOGIC: Nonfocal. SKIN: Free of any rashes or bruises. Feels warm and dry to touch. PSYCHIATRIC: Normal affect. IMPRESSION AND PLAN: 1. Recurrent atrial fibrillation with rapid ventricular response. The patient may need more invasiv e ablation as she reports to me. We will reconsult Dr. rBown in the morning and continue with Xarelto and diltiazem drip for now. She has converted to normal sinus rhythm for now. We will also consult regional director of admissions Cardiology. She is currently hemodynamically stable. 2. Diabetes mellitus. We will start her on insulin sliding scale and monitor Accu-Cheks closely. 3. Dyslipidemia. Restart her home medication of statin. 4. Deep venous thrombosis and gastrointestinal prophylaxis. 5. Code status: FULL CODE. Discussed with the patient.
[2017-11-25] MEDS ORDERED: metFORMIN 500 MG TAB PO SCH (08:00)
[2017-11-25] MEDS ORDERED: Non-Formulary Item 1 EACH (Omeprazole [Omeprazole] 1 CAP) PO SCH (09:00)
[2017-11-25] MEDS ORDERED: Fish Oil 1,000 MG CAP PO SCH (09:00)
[2017-11-25] MEDS ORDERED: Non-Formulary Item 1 EACH (Biotin [Biotin] 1,000 MCG) PO SCH (09:00)
[2017-11-25] MEDS ORDERED: Multivitamin W/ Minerals 1 TAB PO SCH (09:00)
--- NOTE | 2017-11-25 13:50 | CON ---
DATE OF CONSULTATION: 11/25/2017 CARDIOLOGY CONSULTATION PRIMARY WARPER TENDER: Parth Ovalle M.D. REASON FOR CONSULTATION: Atrial fibrillation and atrial flutter. HISTORY OF PRESENT ILLNESS: Mrs. Blake is a very pleasant 72-year-old white female who comes to the hospital for tachycardia. She was seen about 2 weeks ago in the hospital as she was having cataract surgery and she was found to be in atrial flutter with rapid ventricular rate, so she was transferre d over to the hospital where she was found to be in typical atrial flutter. Eventually, Dr. Brown was involved in her care and took her for an atrial flutter ablation; this was exactly 2 weeks yesterday . She was doing well. She was started on medications and she is on Xarelto for stroke prophylaxis. She was started on diltiazem as well. She rescheduled her cataract surgery for late November. She was asked to check her blood pressures at home that she had had doing so. Yesterday she checked it a nd noticed that her heart rate was 150. She was completely asymptomatic. She waited for about half an hour and because it would not come down, decision was made to come to the hospital. In the ER, ori luna was started on Cardizem drip and was transferred over to this facility and on the transfer over, ori luna actually converted back to sinus rhythm. PAST MEDICAL HISTORY: 1. Atrial flutter, status post ablation of typical atrial flutter. 2. Type 2 diabetes. 3. Hypertension. 4. Hyperlipidemia. 5. Obesity. PAST SURGICAL HISTORY: 1. Cavotricuspid isthmus ablation for typical atrial flutter. 2. She did have atypical atrial flutter as well which was paced terminated at the time of EP study. 3. Bilateral knee replacements. 4. Bilateral breast reduction surgery. 5. Appendectomy. 6. Tubal ligation. 7. Cystocele and rectocele repair. 8. Multiple skin cancer removal. 9. Colonoscopy. ALLERGIES: NEOSPORIN causes a rash. SOCIAL HISTORY: No alcohol, tobacco or drugs. FAMILY HISTORY: Mother of heart failure in her 80s. She had a stroke as well. Father of massive CA at age 65. OUTPATIENT MEDICATIONS: Include, 1. Multivitamins. 2. Biotin. 3. Omeprazole. 4. [place] 3 fish oil. 5. Calcium with vitamin D. 6. Fexofenadine. 7. Docusate. 8. Alendronate. 9. Cardizem CD 180 mg daily. 10. Simvastatin 20 mg daily. 11. Xarelto 20 mg at bedtime. 12. Metformin 1000 mg p.o. b.i.d. REVIEW OF SYSTEMS: A 12-point review of systems was done and is all negative unless stated in the his tory of present illness. PHYSICAL EXAMINATION: VITAL SIGNS: Temperature 98.1, pulse 88, respiration rate 18, satting 93% on room air, blood pressur e 122/58. GENERAL: Awake, alert, oriented x3, in no distress. HEENT: Normocephalic, atraumatic. NECK: Supple. LUNGS: Clear. CARDIOVASCULAR: S1, S2. No S3, S4. There is a very soft grade 1/6 systolic murmur in the right upp er sternal border. ABDOMEN: Soft, positive bowel sounds. EXTREMITIES: No edema. SKIN: Warm and dry. LABORATORY DATA AND IMAGING DATA: Laboratory work was reviewed. White count of 5.6, hemoglobin of 1 0, hematocrit of 33, platelet count of 247. Chemistries unremarkable, normal sodium and potassium. Glucose was 137, calcium 9.4. EKGs were reviewed. Initial EKG shows it was described as atrial fibrillation; however, I think it w as atypical atrial flutter with variable AV block. Subsequently, she has had normal sinus rhythm sin ce. Telemetry was reviewed. She has been in normal sinus rhythm since she got here. ASSESSMENT AND PLAN: Atrial flutter: She had her isthmus ablated for typical flutter, but this is a typical flutter. We will plan on increasing her dose of Cardizem to 240 mg a day. Continue full ant icoagulation. Currently she is on Xarelto. She is going to be switched to Coumadin in the next few days according to her report as Xarelto was too expensive. We will have her follow up with Dr. Mateo clayton which she is already scheduled to do so in 2 weeks and she will follow with Dr. Brown for conside ration of an ablation of the atypical pathway. Thank you for letting us to participate in the care of your patient. The patient should be able to b e discharged home today.
--- NOTE | 2017-11-25 14:59 | PDOC.EVN ---
Event Note - Event Note Event Note: 72 M admitted for a. fib/flutter. Started on cardizem drip. Reviewed by cardiology- PO cardizem increased to 240 mg daily. Cardizem drip weaned off. Will continue to monitor HR.
[2017-11-25 16:34] VITALS: BP 139/65; TEMP 97.6
--- NOTE | 2017-11-25 20:50 | DIS ---
DATE OF ADMISSION: 11/24/2017 DATE OF DISCHARGE: 11/25/2017 DISCHARGE DIAGNOSIS: Atrial flutter. SECONDARY DIAGNOSES: Atrial flutter, status post ablation on 11/10/2017; type 2 diabetes mellitus; h ypertension; dyslipidemia and obesity. HISTORY OF PRESENT ILLNESS/HOSPITAL COURSE: Ms. Blake is a pleasant 72-year-old female, who was rec ently admitted to our facility from 11/09/2017 to 11/11/2017 and was diagnosed and treated for atrial flutter. She underwent ablation of the cavotricuspid isthmus by Dr. Brown and was discharged home on Cardizem as well as Xarelto. She was also seen by Dr. Ovalle as well. At the emergency room, jeremy reported that she checked her blood pressure at home and her machine registered with a heart rate i n the 150s. She had seen Dr. Brown earlier this week and her vital signs were within normal limits. At the emergency room, her heart rate was 85 and irregular and monitor showed atrial fibrillation. A [facility], she was given a Cardizem bolus and started on the drip, subsequently transf erred to our facility. By the time she got to [facility], she was converted to normal sinus rhyth m and was admitted for further care. HOSPITAL COURSE: While in hospital, she was weaned off the diltiazem drip. She was reviewed by Card iology, who increased her diltiazem dose to 240 mg daily with a plan to follow up with Dr. Brown later this week. She remained asymptomatic and was pleased with the discharge plan. DISCHARGE MEDICATIONS: Alendronate sodium 70 mg every 7 days; Biotin 1000 mcg daily; calcium carbona te, lactate/vitamin D3 one tablet at bedtime; diltiazem; hydrochloride 250 mg daily; docusate sodium 250 mg at bedtime; fexofenadine 1 tablet at bedtime; metformin 1000 mg b.i.d. with meals; multivitami ns with minerals 1 capsule daily; omega 3 fatty acids/fish oil 1 capsule daily; omeprazole 20 mg johnny y; rivaroxaban 20 mg at bedtime; simvastatin 20 mg at bedtime. PHYSICAL EXAMINATION: VITAL SIGNS: Were stable on discharge with heart rate of 75, temperature of 98.1, pulse 88, respirat ory rate 18, blood pressure 122/56. GENERAL: Not in acute distress, sitting comfortably in bed. HEENT: Normocephalic, atraumatic. Moist mucous membranes. No oropharyngeal exudates or edema. PER RLA, EOMI. NECK: Supple. No JVD. CHEST: Clear to auscultation bilaterally without wheezes or rales. CARDIOVASCULAR: Regular rate and rhythm. No murmurs, rubs or gallops. ABDOMEN: Bowel sounds present. Not tender, not distended. No organomegaly. EXTREMITIES: Moving all extremities spontaneously. No bony deformities. NEUROLOGIC: Alert and well oriented. No focal deficits. SKIN: No rashes or lesions. Warm and well perfused. PSYCHIATRIC: Normal mood and affect. LABORATORY DATA: CBC with WBC of 5.6, hemoglobin 10.6, hematocrit 33.8, and platelet count 247. BMP with sodium of 138, potassium 3.9, chloride 104, carbon dioxide 24, anion gap 13, BUN 10, creatinine 0.7, glucose 103, calcium 9.7. IMAGING: None. CONSULTS: Cardiology CONDITION AT DISCHARGE: Stable and improved. DIET: Heart healthy. 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 She is advised to r eturn to the emergency room if she develops chest pain, shortness of breath, lightheadedness or has a n episode of loss of consciousness. ACTIVITY: To resume as tolerated. Discharge time 65 minutes including chart review and documentation.
[2017-11-25] MEDS ORDERED: Calcium Carbonate + Vit D 1 TAB PO SCH (21:00)
[2017-11-25] MEDS ORDERED: Docusate Calcium (SURFAK) 240 MG CAP PO SCH (21:00)
[2017-11-25] MEDS ORDERED: Rivaroxaban 10 MG TAB PO SCH (21:00)
[2017-11-25] MEDS ORDERED: Non-Formulary Item 1 EACH (Fexofenadine Hcl [Allegra Allergy] 1 TAB) PO SCH (21:00)
[2017-11-25] MEDS ORDERED: Simvastatin 20 MG TAB PO SCH (21:00)
[2017-11-25] MEDS ORDERED: Loratadine 10 MG TAB PO SCH (21:00)
[2017-12-02] MEDS ORDERED: Alendronate Sodium 70 mg Tablet PO SCH (06:00)
== END 2017-11-25 16:15 | disposition home or self-care (01) ==
LOC: ERS 20:39 → 2NO 21:45
PROVIDERS: ADMIT Internal Medicine; ATTEND Internal Medicine
DX: I48.92 Unspecified atrial flutter (principal); E11.9 Type 2 diabetes mellitus without complications; I10 Essential (primary) hypertension; E78.5 Hyperlipidemia, unspecified; E66.9 Obesity, unspecified; I48.91 Unspecified atrial fibrillation; Z68.41 Body mass index [BMI] 40.0-44.9, adult; Z79.84 Long term (current) use of oral hypoglycemic drugs; Z79.899 Other long term (current) drug therapy; Z88.2 Allergy status to sulfonamides; Z98.51 Tubal ligation status; Z96.653 Presence of artificial knee joint, bilateral; Z90.49 Acquired absence of other specified parts of digestive tract; Z98.890 Other specified postprocedural states
CPT/HCPCS: 36415; 36416; 80048; 85027; 93005; 96365; 96366; J7050

== ENCOUNTER 2017-11-27 19:19 | Inpatient (IN) | payer BC, MEDICARE ==
[2017-11-27] MEDS ORDERED: Enoxaparin Sodium 80 MG/0.8 ML SYRINGE ONE (21:56)
[2017-11-27 21:58] LABS: CKMB 1.1 ng/mL (0-6.6); Troponin I 0.012 ng/mL (< 0.028)
[2017-11-27] MEDS ORDERED: Acetaminophen 325 MG TAB PO PRN (22:27)
[2017-11-27] MEDS ORDERED: Ondansetron ODT 4 MG TAB SL PRN (22:27)
[2017-11-27] MEDS ORDERED: Ondansetron HCl/PF 4 MG/2 ML Vial IVP PRN (22:27)
[2017-11-27] MEDS ORDERED: Diltiazem HCl 125 MG, Admixture Fee 1 EACH in Sodium Chloride 0.9% 100 ML IVPB SCH (22:30)
[2017-11-27 22:49] VITALS: BMI 39.9
[2017-11-27] MEDS ORDERED: Simvastatin 20 MG TAB PO SCH (23:30)
[2017-11-27] MEDS ORDERED: Docusate 100 MG CAP PO SCH (23:30)
[2017-11-27] MEDS ORDERED: Loratadine 10 MG TAB PO SCH (23:30)
[2017-11-27] MEDS ORDERED: metFORMIN 500 MG TAB PO SCH (23:30)
--- NOTE | 2017-11-27 23:57 | HP ---
DATE OF ADMISSION: 11/27/2017 CHIEF COMPLAINT: Shortness of breath and not feeling well. HISTORY OF PRESENT ILLNESS: This is a 72-year-old morbidly obese white female with a known history o f recurrent atrial fibrillation and she has been admitted 3 times for the past 3 weeks. She has been seen by Dr. Brown who has done a cardiac ablation for the atrial fibrillation 2 weeks ago and the pat ient was in her usual state of health and on anticoagulation initially on Xarelto as the patient was not able to afford, she was planned to be changed to Coumadin, but today afternoon at around 3:00, ori luna had her primary care doctor appointment and she was not feeling well and not associated with any ch est pain, no nausea, no vomiting, but she just did not feel right, so she went to primary care physic audrey and was noted to have atrial fibrillation with RVR of 150 heart rate. The patient was immediatel y brought to the ER at [facility] through EMS, this was through [facility]. PAST MEDICAL HISTORY: 1. Atrial fibrillation. 2. Type 2 diabetes mellitus. 3. Hypertension. 4. Dyslipidemia. 5. Obesity. PAST SURGICAL HISTORY: 1. Atrial flutter ablation. 2. Bilateral knee replacement. 3. Bilateral breast reduction surgery. 4. Appendectomy. 5. Tubal ligation. 6. Cystocele and rectocele. 7. Multiple skin cancer removals. 8. Colonoscopy. ALLERGIES: NEOSPORIN. SOCIAL HISTORY: The patient is an ongoing smoker. No history of alcohol, no history of illicit drug use. 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 FAMILY HISTORY: Mother at age of 18. Mother has history of heart failure and stroke. Father d ied of massive heart attack at the age of 65. HOME MEDICATIONS: 1. Multivitamin. 2. Biotin. 3. Omeprazole. 4. [place] 3 fish oil. 5. Calcium plus vitamin D. 6. Fexofenadine 1 tablet daily. 7. Docusate daily. 8. Alendronate 70 mg a day every 7 days. 9. Cardizem 180 mg daily. 10. Simvastatin 20 mg daily. 11. Xarelto 20 mg at bedtime. 12. Metformin 1000 mg p.o. b.i.d. REVIEW OF SYSTEMS: All 12 systems are reviewed with the patient thoroughly and found to be negative at this time except the ones described in HPI. Constitutional: Weight loss or gain, sense of well-being, ability to conduct usual activities, exerc ise tolerance. Skin/Breast: Rash, itching, changes in hair growth or loss, nail changes, breast lumps, tenderness, swelling, nipple discharge. Eyes: Vision, double vision, tearing, blind spots, pain. ENT/Mouth: Headaches (location, time of onset, duration, precipitating factors), vertigo, lightheade dness, injury. Vision, double vision, tearing, blind spots, pain, nose bleeding, colds, obstruction, discharge, dental difficulties, gingival bleeding, dentures, neck stiffness, pain, tenderness, masses in thyroid or other areas. Cardiovascular: Precordial pain, substernal distress, palpitations, syncope, dyspnea on exertion, or thopnea, nocturnal paroxysmal dyspnea, edema, cyanosis, hypertension, heart murmurs, varicosities, ph lebitis, claudication. Respiratory: Pain, shortness of breath, wheezing, stridor, cough, hemoptysis, fever or night sweats. Gastrointestinal: Poor appetite, dysphagia, indigestion, abdominal pain, heartburn, eructation, naus ea, vomiting, hematemesis, jaundice, constipation, or diarrhea, abnormal stools (javy-colored, tarry, bloody, greasy, foul smelling), flatulence, hemorrhoids, recent changes in bowel habits. Genitourinary: Urgency, frequency, dysuria, nocturia, hematuria, polyuria, oliguria, unusual (or juan ramon nge in) color of urine, stones, hesitancy, change in size of stream, dribbling, acute retention or in continence, libido, potency. Musculoskeletal: Pain, swelling, redness or heat of muscles or joints, limitation, of motion, muscul ar weakness, atrophy, cramps. Neurologic/Psychiatric: Convulsions, paralyses, tremor, incoordination, paresthesias, difficulties w ith memory of speech, sensory or motor disturbances, or muscular coordination (ataxia, tremor), emoti onal problems, anxiety, depression, previous psychiatric care, unusual perceptions, hallucinations. Allergy/Immunologic: Skin rash, anemia, bleeding tendency, polydipsia, polyuria, intolerance to heat or cold. PHYSICAL EXAMINATION: VITAL SIGNS: Blood pressure is 110/70, heart rate is 134, respiratory rate is 18, and saturation is 98% on 2 liters. GENERAL: The patient is a morbidly obese. She is alert and oriented x3. HEENT: Atraumatic, normocephalic. PERRLA, extraocular movements were intact. Oral mucosa pink and moist. CARDIOVASCULAR: S1, S2 normal. No murmurs, rubs or gallops. LUNGS: Bilateral air entry was equal. No wheezing, no crackles. ABDOMEN: Soft, nontender, no guarding, no rebound tenderness. Bowel sounds normal. MUSCULOSKELETAL: No calf tenderness. No pedal edema. No joint tenderness. No joint swelling. SKIN: No cyanosis or erythema, no rash, no pallor. CENTRAL NERVOUS SYSTEM: Cranial nerve examination II-XII intact. No focal deficits were noted. LABORATORY DATA: WBC is 7.7, hemoglobin is 11.7, hematocrit is 38.9, platelets are 302. Potassium i s 4.5, sodium is 137, chloride is 104, bicarbonate is 21, BUN is 13, creatinine is 0.75, blood sugar 141. ASSESSMENT: 1. Acute atrial fibrillation with rapid ventricular rate, recurrent. 2. Type 2 diabetes mellitus. 3. Morbid obesity. 4. History of dyslipidemia. PLAN: 1. Plan is to continue to monitor this patient in the IMCU on the Cardizem drip. We will hold off t he oral Cardizem at this time as the pressures are pretty low. The patient has been started on Loven ox 1 mg/kg b.i.d. and the patient is not able to afford the Xarelto, so plan was to change to Coumadi n, but we will hold giving Coumadin and anticipating any procedures by Dr. Brown. We will consult Car diology, Dr. Ovalle and Dr. Brown, Electrophysiology. 2. The patient has type 2 diabetes mellitus, well-controlled. We will continue to be on the home me dications. We will hold the metformin at this time. We will continue on the sliding scale insulin. 3. The patient has morbid obesity. Encouraged the patient to lose weight for better health. 4. Hypertension is well controlled. The patient's blood pressures are currently on the lower side. We will hold the blood pressure medications. 5. Deep venous thrombosis prophylaxis. The patient is anticoagulated with Lovenox. I spent 70 minutes with this patient. Of this, one hour is the critical care time.
[2017-11-28 04:32] LABS: #Basophils 0.1 thou/uL (0.0-0.2); #Eosinphils 0.2 thou/uL (0.0-0.7); #Lymphocytes 2.5 thou/uL (1.20-3.40); #Monocytes 0.7 thou/uL (0.11-0.59); #Neutrophils 3.6 thou/uL (1.40-6.50); %Basophils 1.1 % (0.0-1.0); %Eosinophils 2.9 % (0.0-10.0); %Lymphocytes 35.9 % (21.0-51.0); %Monocytes 9.4 % (0.0-10.0); %Neutrophils 50.7 % (42.0-75.0); Hemoglobin 10.8 g/dL (12.0-16.0); Mean Corpuscular HGB CONC 31.4 g/dL (32.0-36.0); Mean Corpuscular Hemoglobin 26.4 pg (27.0-31.0); Mean Corpuscular Volume 84.1 fl (81.0-99.0); Mean Platelet Volume 8.5 fL (7.4-10.4); Platelet Count 257 thou/uL (130-400); RBC Distribution Width 15.1 % (11.5-14.5); Red Blood Cell (RBC) Count 4.11 mill/uL (4.20-5.40)
[2017-11-28 04:37] LABS: Anion Gap 10 mmol/L (10-20); BUN (Urea Nitrogen) 13 mg/dL (9.8-20.1); Calc. Creatinine Clearance 93 mL/min (70-130); Calcium 9.2 mg/dL (7.8-10.44); Carbon Dioxide 26 mmol/L (23-31); Chloride 107 mmol/L (98-107); Estimated GFR-MDRD 78; Glucose 141 mg/dL (83-110); Potassium 4.2 mmol/L (3.5-5.1); Sodium 139 mmol/L (136-145)
[2017-11-28] MEDS: Enoxaparin Sodium 80 MG/0.8 ML SYRINGE SC SCH ×2 (08:22→20:21)
[2017-11-28] MEDS: Docusate 100 MG CAP PO SCH ×2 (08:22→20:21)
[2017-11-28] MEDS: Famotidine/PF 20 mg/2ml Vial SLOW IVP SCH ×2 (08:22→21:21)
[2017-11-28] MEDS ORDERED: (Biotin [Biotin] 1,000 MCG) PO SCH (09:00)
--- NOTE | 2017-11-28 10:12 | CON ---
DATE OF CONSULTATION: 11/28/2017 REASON FOR CONSULTATION: [facility] protocol. HISTORY OF PRESENT ILLNESS: This is a pleasant 72-year-old female who was readmitted last night with recurrent atrial fibrillation. She had been seen last week and even undergone a cardiac ablation for atrial fibrillation. The patient got up to work yesterday, she began feeling funny. She took her blood pressure and found herself to have a pulse of 150 on the blood pressure cuff. She subsequently presented to the [facility] and was transferred back over here. At the current time, she has converted to sinus rhythm. She is not having any chest pain or shortness of breath. She is on a Cardizem drip. PAST MEDICAL HISTORY: 1. Atrial fibrillation. 2. Diabetes mellitus type 2. 3. Hypertension. 4. Hyperlipidemia. 5. Obesity. PAST SURGICAL HISTORY: 1. Atrial fibrillation, ablation. 2. Knee replacement surgery. 3. Breast reduction surgery. 4. Appendectomy. 5. Tubal ligation. 6. Cystocele and rectocele repair. 7. Skin tag removal. 8. Colonoscopy. ALLERGIES: NEOSPORIN. SOCIAL HISTORY: History of tobacco abuse. 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 FAMILY MEDICAL HISTORY: Mother at age 18 of heart failure and stroke. Dad of a heart attack at age 65. MEDICATIONS PRIOR TO ADMISSION: Multivitamins, biotin, omeprazole, omega 3 fish oil, calcium, fexofenadine, docusate, alendronate, Cardizem, simvastatin, Xarelto, metformin. REVIEW OF SYSTEMS: A 12-point review of systems is otherwise negative. PHYSICAL EXAMINATION: VITAL SIGNS: Temperature 97.9, pulse 80, respiration 16, O2 sat 96% on room air. GENERAL: She is awake and alert, in no distress. HEENT: Unremarkable. NECK: Without adenopathy or JVD. CHEST: Clear without wheezing or rhonchi. CARDIAC: S1, S2 regular, without murmur. ABDOMEN: Soft and nontender. EXTREMITIES: No clubbing, cyanosis, or edema. LABORATORY DATA AND X-RAY FINDINGS: Sodium 139, potassium 4.2, chloride 107, CO2 26, BUN 13, creatinine 0.7, glucose 141. White blood cell count 7.0, hematocrit 34.5, platelet count 257. Chest x-ray showed no mass, effusions or infiltrates. ASSESSMENT: Recurrent atrial fibrillation. PLAN: The patient can be transferred out of the telemetry floor. She is on appropriate medication. She does not require any further Pulmonary or Critical Care intervention. 50 min. of time was spent on this consultation. Of the 50 min. time, more than 50% of time was spent on counseling and coordination of care [facility]
--- NOTE | 2017-11-28 14:55 | PDOC.PN ---
- Subjective Encounter Start Date: 11/28/17 Encounter Start Time: 14:53 Subjective: feels well. no CP/palpitations -: off of xarelto.was supposed to start Coumadin from yesterday - Objective Resuscitation Status: Resuscitation Status FULL:Full Resuscitation MAR Reviewed: Yes Vital Signs & Weight: Vital Signs (12 hours) Temp Pulse Pulse Pulse Resp BP BP 11/28/17 12:00 97.8 F 89 18 11/28/17 09:43 86 87 128/57 L 126/65 11/28/17 07:45 97.9 F 80 16 11/28/17 03:59 97.9 F 139 H 16 BP Pulse Ox 11/28/17 12:00 122/57 L 95 11/28/17 09:43 11/28/17 07:45 115/65 96 11/28/17 03:59 106/71 94 L Weight Weight 190 lb 3.2 oz I&O: 11/27/17 11/28/17 11/29/17 06:59 06:59 06:59 Intake Total 300 240 Output Total 650 Balance -350 240 Result Diagrams: 11/28/17 03:56 11/28/17 03:56 Phys Exam - Physical Examination Constitutional: NAD HEENT: PERRLA, moist MMs, sclera anicteric, oral pharynx no lesions Neck: no nodes, no JVD, supple, full ROM Respiratory: no wheezing, no rales, no rhonchi, clear to auscultation bilateral Cardiovascular: RRR, no significant murmur Gastrointestinal: soft, non-tender, no distention, positive bowel sounds Musculoskeletal: no edema, pulses present Neurological: non-focal, normal sensation, moves all 4 limbs Psychiatric: normal affect, A&O x 3 Skin: no rash Dx/Plan (1) Atrial flutter Code(s): I48.92 - UNSPECIFIED ATRIAL FLUTTER Status: Resolved Comment: s/p cavotricuspid isthmus ablation 11/10/2017 (2) DM type 2 (diabetes mellitus, type 2) Status: Chronic Qualifiers: (3) Dyslipidemia Code(s): E78.5 - HYPERLIPIDEMIA, UNSPECIFIED Status: Chronic (4) HTN (hypertension) Code(s): I10 - ESSENTIAL (PRIMARY) HYPERTENSION Status: Chronic Qualifiers: (5) Obesity Code(s): E66.9 - OBESITY, UNSPECIFIED Status: Chronic - Plan out of bed/ambulate, DVT proph w/SCDs on LOvenox BID for stroke prophylaxis.will want coumadin on DC -: EP to see today.may need more ablation procedures -: cont cardiazem gtt for now. -: NSR.HD stable * . Review of Systems - Review of Systems Constitutional: negative: fever, chills, sweats, weakness, malaise, other ENT: negative: Ear Pain, Ear Discharge, Nose Pain, Nose Discharge, Nose Congestion, Mouth Pain, Mouth Swelling, Throat Pain, Throat Swelling, Other Respiratory: negative: Cough, Dry, Shortness of Breath, Hemoptysis, SOB with Excertion, Pleuritic Pain, Sputum, Wheezing Cardiovascular: negative: chest pain, palpitations, orthopnea, paroxysmal nocturnal dyspnea, edema, light headedness, other Gastrointestinal: negative: Nausea, Vomiting, Abdominal Pain, Diarrhea, Constipation, Melena, Hematochezia, Other Genitourinary: negative: Dysuria, Frequency, Incontinence, Hematuria, Retention , Other Musculoskeletal: negative: Neck Pain, Shoulder Pain, Arm Pain, Back Pain, Hand Pain, Leg Pain, Foot Pain, Other Neurological: negative: Weakness, Numbness, Incoordination, Change in Speech, Confusion, Seizures, Other - Medications/Allergies Allergies/Adverse Reactions: Allergies Allergy/AdvReac Type Severity Reaction Status Date / Time bacitracin Allergy Verified 11/24/17 23:36 Medications: Current Medications Calcium/Vitamin D (Caltrate 600 + Vit D) 1 tab PO HS [facility] Docusate Sodium (Colace) 100 mg PO BID [facility] Last Admin: 11/28/17 08:22 Dose: 100 mg Enoxaparin Sodium (Lovenox) 80 mg SC 0900,2100 [facility] Last Admin: 11/28/17 08:22 Dose: 80 mg Famotidine (Pepcid) 20 mg SLOW IVP Q12HR [facility] Last Admin: 11/28/17 08:22 Dose: 20 mg Diltiazem HCl 125 mg/Miscellaneous Medication 1 each/ Sodium Chloride 125 mls @ 0 mls/hr IVPB INF [facility]; As Directed PRN Reason: Protocol Last Admin: 11/28/17 05:58 Dose: 125 mls Loratadine (Claritin) 10 mg PO HS [facility] Pantoprazole Sodium (Protonix) 40 mg PO DAILY [facility] Last Admin: 11/28/17 08:22 Dose: 40 mg Simvastatin (Zocor) 20 mg PO HS [facility]
[2017-11-28] MEDS ORDERED: Diltiazem HCl 125 MG, Admixture Fee 1 EACH in Sodium Chloride 0.9% 100 ML IVPB PRN (16:35)
[2017-11-28] MEDS ORDERED: Esmolol 2,500 MG/NS 250 ML 250 ML IVPB SCH (17:00)
[2017-11-28] MEDS: Simvastatin 20 MG TAB PO SCH (20:21)
[2017-11-28] MEDS: Calcium Carbonate + Vit D 1 TAB PO SCH (20:21)
[2017-11-28] MEDS: Loratadine 10 MG TAB PO SCH (20:21)
[2017-11-28] MEDS ORDERED: DOCUSATE SODIUM 250 MG PO SCH (21:00)
[2017-11-28] MEDS ORDERED: Rivaroxaban 10 MG TAB PO SCH (21:00)
--- NOTE | 2017-11-29 01:00 | CON ---
DATE OF CONSULTATION: 11/28/2017 ELECTROPHYSIOLOGY CONSULTATION REPORT DICTATED FOR: Bennie Brown M.D. REFERRING PHYSICIAN: Dr. Leigh. REASON FOR CONSULTATION: Atrial flutter with RVR. HISTORY OF PRESENT ILLNESS: Ms. Blake is a patient known to our practice with history of atrial arr hythmias. She presented to the hospital with this episode for heart racing and tachycardia. She had undergone cavotricuspid isthmus ablation for typical atrial flutter on 11/10/[address] Brown. At that time, her typical atrial flutter was successfully ablated; however, she was found to have atypi jag flutter that was at that time easily pace terminated. She was discharged, doing well in her heydi very; however, she began to experience elevated heart rate over 100 beats per minute and just felt po camila, which made her seek medical attention. She was started on Cardizem drip and converted to sinus rhythm at 5 a.m. on 11/28/2017. Since then, she denies any heart racing, palpitations, chest pain, chest pressure, stroke, or stroke-like symptoms. For oral anticoagulation, the patient was initially started on Xarelto; however, financially this was not an option and she was then transitioned to Cou madin. However, she had not started her Coumadin before she presented to the hospital. She is curre ntly on Lovenox. PAST MEDICAL HISTORY: 1. History of sustained atrial flutter in 10/2017 with subsequent SCOTT and CTI ablation with successf ul termination of her typical atrial flutter. 2. Atypical atrial flutter seen during study in 10/2017, easily pace terminated. 3. Structurally normal heart by SCOTT with normal LVEF, no thrombus present and left atrial size of 3. 6 cm. 4. Type 2 diabetes. 5. Hypertension. 6. Hyperlipidemia. 7. Obesity. 8. Elevated CHADS-VASc score of 4 requiring anticoagulation. PAST SURGICAL HISTORY: 1. CTI ablation for typical atrial flutter on 11/12/2017. 2. Knee replacement. 3. Breast reduction surgery. 4. Appendectomy. 5. Tubal ligation. 6. Cystocele and rectocele repair. 7. Colonoscopy. ALLERGIES: NEOSPORIN. MEDICATIONS: Include omeprazole 20 mg daily, Calcitrate daily, fish oil supplement 1000 mg daily, Co lace 100 mg 3 tablets daily, Biotin 1000 units daily, multivitamin daily, simvastatin 20 mg daily, Al legra 180 mg daily, metformin 1000 mg daily, alendronate sodium 70 mg daily, losartan 50 mg daily, na proxen daily, turmeric daily, Salonpas medication as directed, ferrous sulfate daily, Flonase daily, diltiazem, and Coumadin as directed. REVIEW OF SYSTEMS: Twelve-point review of systems is conducted and is negative except what is avi cortez in history of present illness. SOCIAL HISTORY: Remote history of tobacco abuse, negative for alcohol consumption. 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 FAMILY HISTORY: Mother at age 18 of heart failure and stroke and father at a ge 65 from myocardial infarction. PHYSICAL EXAMINATION: VITAL SIGNS: Most recent vital signs include 98.1 degrees Fahrenheit, pulse is 76, respirations are 20, oxygen saturation is 95% on room air, blood pressure 123/59. GENERAL: She is an elderly female, in no acute distress. She is resting comfortably in a chair during the examination. HEAD AND NECK: Her sclerae are anicteric. Neck is supple without jugular venous distention. Her or al mucosa is moist and pink with adequate dentition. Her thyroid is nonpalpable. There is no lympha denopathy. CHEST: Her respirations are even and nonlabored. Lungs are clear to auscultation bilaterally withou t crackles, wheezes, or rhonchi. CARDIOVASCULAR: Heart rate is currently regularly regular without murmur, rub, or gallop. EXTREMITIES: Warm and dry to touch without clubbing, cyanosis, or edema. ABDOMEN: Benign. There are no palpable masses. Abdomen is nontender, but obese. Hepatojugular ref jf is negative and there is no hepatosplenomegaly. Bowel sounds are noted throughout. NEUROLOGIC: Grossly intact and exam is nonfocal. LABORATORY DATA: Labs from 11/28/2017: WBC 7.0, HGB 10.8, HCT 34.5, platelet count is 257. Sodium 139, potassium 4.2, chloride 107, carbon dioxide 26, BUN is 13, and creatinine is 0.73. Chest x-ray on 11/27/2017; no acute cardiopulmonary process and cardiomegaly. On review of telemetry and 12-lead EKGs, the patient was found to be in atypical atrial flutter with RVR with rates of 140-150 range. She converted to normal sinus rhythm at around 5:00 a.m. today. ASSESSMENT AND PLAN: 1. Atypical atrial flutter with rapid ventricular response. The patient is currently maintaining no rmal sinus mechanism, converted at 5:00 a.m. this morning. She is on diltiazem drip which will be di scontinued. Should she go back into her atypical flutter and need rate control, we will use proprano lol given the current diltiazem shortage. The patient is currently on Lovenox for stroke prophylaxis which we would agree with; however, after her procedure, the patient will need oral anticoagulation at discharge. 2. Typical atrial flutter, status post successful CTI ablation in October. There is no documented r ecurrence of typical atrial flutter. Atypical flutter was seen during her study and ablation in [facility] [place] which is her current problem. I had a long discussion with the patient and her daughter regarding type of atrial flutters. At this point, we planned on taking the patient for atypical flutter ablation on afternoon. The pa tient will be n.p.o. after midnight for the procedure with anesthesia. Risks and benefits were discu ssed. The risks include hematoma, bleeding, damage to blood vessels, perforation of the heart, bleed ing in the pericardial sac requiring chest tube placement or emergent surgery and/or . Risks al so include stroke and/or uncontrolled bleeding. Patient verbalizes understanding and wishes to proce ed with the ablation. Thank you for allowing us to participate in the care of this patient. Dictated by TOMY Salas
[2017-11-29] MEDS: Enoxaparin Sodium 80 MG/0.8 ML SYRINGE SC SCH ×2 (07:57→20:22)
[2017-11-29] MEDS: Docusate 100 MG CAP PO SCH ×2 (07:59→20:22)
[2017-11-29] MEDS: Famotidine/PF 20 mg/2ml Vial SLOW IVP SCH ×2 (07:59→20:23)
[2017-11-29] MEDS: Metamucil PACK PO SCH (10:00)
--- NOTE | 2017-11-29 12:57 | PRG ---
DATE OF SERVICE: 11/29/2017 SUBJECTIVE: Ms. Blake continues to do well. She is still in sinus rhythm this morning. She has no further dizziness or loss of consciousness. No stroke-like symptoms, no neurological deficits. She continues on p.o. Cardizem. OBJECTIVE DATA: VITAL SIGNS: The blood pressure is 120/59, heart rate is 88, respirations 17, temperature 97.1 degre es Fahrenheit. GENERAL: Alert and oriented woman in no apparent distress. NECK: Supple. Jugular veins not distended. CHEST: Coarse without crackles. CARDIOVASCULAR: Heart sounds are regular to rate and rhythm. No murmur or gallop. ABDOMEN: Benign. Bowel sounds positive. EXTREMITIES: Lower extremities without edema, clubbing or cyanosis. DATABASE: The telemetry strips reveal sinus rhythm. No atrial arrhythmia since yesterday morning. ASSESSMENT AND PLAN: Ms. Blake is a very pleasant 72-year-old woman with history of atrial arrhythm ias. She underwent the cavotricuspid isthmus ablation, but also noted to have atypical, likely left atrial flutters as well during her last ablation. She had sustained recurrence of stroke for back to the hospital. She spontaneously converted back to sinus rhythm. We discussed the pros and cons about proceeding with a second ablation. We discussed the difference between left and right atrial ablation more extensive nature. She will likely require pulmonary veno us isolation along with the flutter ablation as well. Risks, benefits were detailed. She is to cont inue on full dose Lovenox up until the morning of the procedure. She is willing to proceed. Yesterd ay I spoke to her daughter who was a medical lab director in [place] and answered all their quest ions. PLAN: We will keep n.p.o. after midnight. Hold Lovenox tomorrow.
--- NOTE | 2017-11-29 13:21 | PDOC.PN ---
- Subjective Encounter Start Date: 11/29/17 Encounter Start Time: 13:18 Subjective: feels good.no new complaints -: no CP/palpitations - Objective Resuscitation Status: Resuscitation Status FULL:Full Resuscitation MAR Reviewed: Yes Vital Signs & Weight: Vital Signs (12 hours) Temp Pulse Resp BP BP BP Pulse Ox 11/29/17 11:05 97.1 F L 88 17 120/59 L 92 L 11/29/17 07:58 98 134/64 11/29/17 07:46 97.6 F 98 16 94 L 11/29/17 07:43 97.6 F 98 16 134/64 94 L 11/29/17 04:00 98.4 F 80 16 123/59 L 94 L Weight Weight 189 lb 6.4 oz I&O: 11/28/17 11/29/17 11/30/17 06:59 06:59 06:59 Intake Total 300 2127 120 Output Total 650 1950 Balance -350 177 120 Result Diagrams: 11/28/17 03:56 11/28/17 03:56 Phys Exam - Physical Examination Constitutional: NAD HEENT: PERRLA, moist MMs, sclera anicteric, oral pharynx no lesions Neck: no nodes, no JVD, supple, full ROM Respiratory: no wheezing, no rales, no rhonchi, clear to auscultation bilateral Cardiovascular: RRR, no significant murmur, no rub, gallop Gastrointestinal: soft, non-tender, no distention, positive bowel sounds Musculoskeletal: no edema, pulses present Neurological: non-focal, normal sensation, moves all 4 limbs Psychiatric: normal affect, A&O x 3 Skin: no rash Dx/Plan (1) Atrial flutter Code(s): I48.92 - UNSPECIFIED ATRIAL FLUTTER Status: Acute Comment: s/p cavotricuspid isthmus ablation 11/10/2017 (2) DM type 2 (diabetes mellitus, type 2) Status: Chronic Qualifiers: (3) Dyslipidemia Code(s): E78.5 - HYPERLIPIDEMIA, UNSPECIFIED Status: Chronic (4) HTN (hypertension) Code(s): I10 - ESSENTIAL (PRIMARY) HYPERTENSION Status: Chronic Qualifiers: (5) Obesity Code(s): E66.9 - OBESITY, UNSPECIFIED Status: Chronic - Plan out of bed/ambulate, DVT proph w/lovenox, DVT proph w/SCDs Cont BID lovenox.Ablation tomorrow. -: hemodynamically stable. -: EP following.appreciate Input. -: NSR on PO cardiazem.Drip stopped -: am labs * . Review of Systems - Review of Systems Constitutional: negative: fever, chills, sweats, weakness, malaise, other ENT: negative: Ear Pain, Ear Discharge, Nose Pain, Nose Discharge, Nose Congestion, Mouth Pain, Mouth Swelling, Throat Pain, Throat Swelling, Other Respiratory: negative: Cough, Dry, Shortness of Breath, Hemoptysis, SOB with Excertion, Pleuritic Pain, Sputum, Wheezing Cardiovascular: negative: chest pain, palpitations, orthopnea, paroxysmal nocturnal dyspnea, edema, light headedness, other Gastrointestinal: negative: Nausea, Vomiting, Abdominal Pain, Diarrhea, Constipation, Melena, Hematochezia, Other Genitourinary: negative: Dysuria, Frequency, Incontinence, Hematuria, Retention , Other Musculoskeletal: negative: Neck Pain, Shoulder Pain, Arm Pain, Back Pain, Hand Pain, Leg Pain, Foot Pain, Other Skin: negative: Rash, Lesions, Fernando, Bruising, Other Neurological: negative: Weakness, Numbness, Incoordination, Change in Speech, Confusion, Seizures, Other - Medications/Allergies Allergies/Adverse Reactions: Allergies Allergy/AdvReac Type Severity Reaction Status Date / Time bacitracin Allergy Verified 11/24/17 23:36 Medications: Current Medications Calcium/Vitamin D (Caltrate 600 + Vit D) 1 tab PO [facility] Last Admin: 11/28/17 20:21 Dose: 1 tab Diltiazem HCl (Cardizem Cd) 240 mg PO DAILY [facility] Last Admin: 11/29/17 07:58 Dose: 240 mg Docusate Sodium (Colace) 100 mg PO BID [facility] Last Admin: 11/29/17 07:59 Dose: 100 mg Enoxaparin Sodium (Lovenox) 80 mg SC 0900,2100 [facility] Stop: 11/29/17 21:00 Last Admin: 11/29/17 07:57 Dose: 80 mg Famotidine (Pepcid) 20 mg SLOW IVP Q12HR [facility] Last Admin: 11/29/17 07:59 Dose: Not Given Loratadine (Claritin) 10 mg PO [facility] Last Admin: 11/28/17 20:21 Dose: 10 mg Pantoprazole Sodium (Protonix) 40 mg PO DAILY [facility] Last Admin: 11/29/17 07:58 Dose: 40 mg Psyllium Hydrophilic Mucilloid (Metamucil) 1 pk PO DAILY [facility] Last Admin: 11/29/17 10:00 Dose: 1 pk Simvastatin (Zocor) 20 mg PO HS [facility] Last Admin: 11/28/17 20:21 Dose: 20 mg
[2017-11-29] MEDS ORDERED: Milk Of Magnesia 30 ML UDCUP PO PRN (15:46)
[2017-11-29] MEDS: Calcium Carbonate + Vit D 1 TAB PO SCH (20:22)
[2017-11-29] MEDS: Loratadine 10 MG TAB PO SCH (20:23)
[2017-11-29] MEDS: Simvastatin 20 MG TAB PO SCH (20:23)
[2017-11-30 06:01] LABS: #Basophils 0.1 thou/uL (0.0-0.2); #Eosinphils 0.1 thou/uL (0.0-0.7); #Monocytes 0.6 thou/uL (0.11-0.59); %Basophils 1.3 % (0.0-1.0); %Eosinophils 2.3 % (0.0-10.0); %Lymphocytes 34.1 % (21.0-51.0); %Monocytes 10.6 % (0.0-10.0); %Neutrophils 51.7 % (42.0-75.0); Hemoglobin 10.2 g/dL (12.0-16.0); Mean Corpuscular HGB CONC 30.5 g/dL (32.0-36.0); Mean Corpuscular Hemoglobin 25.4 pg (27.0-31.0); Mean Corpuscular Volume 83.3 fl (81.0-99.0); Mean Platelet Volume 8.3 fL (7.4-10.4); Platelet Count 234 thou/uL (130-400); RBC Distribution Width 15.2 % (11.5-14.5); Red Blood Cell (RBC) Count 4.02 mill/uL (4.20-5.40); White Blood Cell (WBC) Count 5.9 thou/uL (4.8-10.8)
[2017-11-30 06:21] LABS: PTT 31.9 SEC (22.9-36.1); Prothrombin Time 13.7 SEC (12.0-14.7)
[2017-11-30 06:24] LABS: Anion Gap 11 mmol/L (10-20); BUN (Urea Nitrogen) 11 mg/dL (9.8-20.1); Calc. Creatinine Clearance 91 mL/min (70-130); Calcium 9.5 mg/dL (7.8-10.44); Carbon Dioxide 27 mmol/L (23-31); Chloride 105 mmol/L (98-107); Estimated GFR-MDRD 78; Glucose 136 mg/dL (83-110); Potassium 4.3 mmol/L (3.5-5.1); Sodium 139 mmol/L (136-145)
[2017-11-30] MEDS ORDERED: cloNIDine 0.1 MG TAB PO PRN (11:18)
[2017-11-30] MEDS ORDERED: hydrALAZINE 20 MG/ML VIAL SLOW IVP PRN (11:18)
[2017-11-30] MEDS: Famotidine/PF 20 mg/2ml Vial SLOW IVP SCH (11:24)
[2017-11-30] MEDS ORDERED: Bisacodyl 10 MG SUPP PR SCH (11:30)
[2017-11-30 11:53] VITALS: BP 132/62
[2017-11-30] MEDS ORDERED: Heparin 10,000 UNITS/1 ML VIAL ONE ×3 (12:36→15:18)
[2017-11-30] MEDS ORDERED: Lidocaine 1% (PF) 30 ML VIAL ONE (13:10)
[2017-11-30] MEDS ORDERED: Fentanyl 100 MCG/2 ML VIAL ONE (13:25)
[2017-11-30] MEDS ORDERED: Propofol 500 MG/50 ML VIAL ONE (13:26)
[2017-11-30] MEDS ORDERED: Protamine Sulfate 50 MG/5 ML VIAL ONE ×3 (13:26→16:48)
[2017-11-30] MEDS ORDERED: PHENYLEPHRINE-NS 100 MCG/ML 10 ML SYRINGE ONE ×3 (13:26→15:32)
[2017-11-30] MEDS ORDERED: Furosemide 40 MG/4 ML VIAL ONE (13:26)
--- NOTE | 2017-11-30 13:57 | PDOC.PN ---
- Subjective Encounter Start Date: 11/30/17 Encounter Start Time: 13:55 Subjective: c/o constipation and discomfort - Objective Resuscitation Status: Resuscitation Status FULL:Full Resuscitation MAR Reviewed: Yes Vital Signs & Weight: Vital Signs (12 hours) Temp Pulse Resp BP BP Pulse Ox 11/30/17 11:51 98.3 F 96 17 132/62 96 11/30/17 09:00 98.2 F 92 18 170/68 H 96 11/30/17 08:00 98.4 F 82 19 94 L 11/30/17 03:46 98.4 F 82 19 136/72 94 L Weight Weight 187 lb I&O: 11/29/17 11/30/17 12/01/17 06:59 06:59 06:59 Intake Total 2127 360 Output Total 1950 Balance 177 360 Result Diagrams: 11/30/17 05:14 11/30/17 05:14 Additional Labs: Accuchecks 11/29/17 14:01 POC Glucose 185 H Phys Exam - Physical Examination Constitutional: NAD HEENT: PERRLA, moist MMs, sclera anicteric, oral pharynx no lesions Neck: no nodes, no JVD, supple, full ROM Respiratory: no wheezing, no rales, no rhonchi, clear to auscultation bilateral Cardiovascular: RRR, no significant murmur Gastrointestinal: soft, non-tender, no distention, positive bowel sounds Musculoskeletal: no edema, pulses present Neurological: non-focal, normal sensation, moves all 4 limbs Psychiatric: normal affect, A&O x 3 Skin: no rash Dx/Plan (1) Atrial flutter Code(s): I48.92 - UNSPECIFIED ATRIAL FLUTTER Status: Acute Comment: s/p cavotricuspid isthmus ablation 11/10/2017 (2) DM type 2 (diabetes mellitus, type 2) Status: Chronic Qualifiers: (3) Dyslipidemia Code(s): E78.5 - HYPERLIPIDEMIA, UNSPECIFIED Status: Chronic (4) HTN (hypertension) Code(s): I10 - ESSENTIAL (PRIMARY) HYPERTENSION Status: Chronic Qualifiers: (5) Obesity Code(s): E66.9 - OBESITY, UNSPECIFIED Status: Chronic - Plan plan discussed w/ family, out of bed/ambulate, DVT proph w/SCDs add laxatives. -: BP high.add prn meds. -: Lovenox stopped per EP-ablation today.will restart xarelto after that -: HD stable. -: bronson GILMORE in am if Ok w EP and stable * . Review of Systems - Review of Systems Constitutional: negative: fever, chills, sweats, weakness, malaise, other ENT: negative: Ear Pain, Ear Discharge, Nose Pain, Nose Discharge, Nose Congestion, Mouth Pain, Mouth Swelling, Throat Pain, Throat Swelling, Other Respiratory: negative: Cough, Dry, Shortness of Breath, Hemoptysis, SOB with Excertion, Pleuritic Pain, Sputum, Wheezing Cardiovascular: negative: chest pain, palpitations, orthopnea, paroxysmal nocturnal dyspnea, edema, light headedness, other Gastrointestinal: Constipation. negative: Nausea, Vomiting, Abdominal Pain, Diarrhea, Melena, Hematochezia, Other Genitourinary: negative: Dysuria, Frequency, Incontinence, Hematuria, Retention , Other Musculoskeletal: negative: Neck Pain, Shoulder Pain, Arm Pain, Back Pain, Hand Pain, Leg Pain, Foot Pain, Other Skin: negative: Rash, Lesions, Fernando, Bruising, Other Neurological: negative: Weakness, Numbness, Incoordination, Change in Speech, Confusion, Seizures, Other - Medications/Allergies Allergies/Adverse Reactions: Allergies Allergy/AdvReac Type Severity Reaction Status Date / Time bacitracin Allergy Verified 11/24/17 23:36 Medications: Current Medications Calcium/Vitamin D (Caltrate 600 + Vit D) 1 tab PO HS [facility] Last Admin: 11/29/17 20:22 Dose: 1 tab Clonidine (Catapres) 0.1 mg PO Q4H PRN PRN Reason: SBP>160 Docusate Sodium (Colace) 100 mg PO BID [facility] Last Admin: 11/29/17 20:22 Dose: 100 mg Famotidine (Pepcid) 20 mg PO BID [facility] Hydralazine HCl (Apresoline) 10 mg SLOW IVP Q4H PRN PRN Reason: SBP>170 Loratadine (Claritin) 10 mg PO HS [facility] Last Admin: 11/29/17 20:23 Dose: 10 mg Magnesium Hydroxide (Milk Of Magnesium) 30 ml PO DAILYPRN PRN PRN Reason: Constipation Last Admin: 11/29/17 16:05 Dose: 30 ml Pantoprazole Sodium (Protonix) 40 mg PO DAILY [facility] Last Admin: 11/29/17 07:58 Dose: 40 mg Psyllium Hydrophilic Mucilloid (Metamucil) 1 pk PO DAILY [facility] Last Admin: 11/29/17 10:00 Dose: 1 pk Simvastatin (Zocor) 20 mg PO HS [facility] Last Admin: 11/29/17 20:23 Dose: 20 mg
[2017-11-30] MEDS ORDERED: Heparin 30,000 units/30 ml VIAL ONE (14:43)
[2017-11-30] MEDS ORDERED: Propofol 200 MG/20 ML VIAL ONE (14:43)
[2017-11-30] MEDS ORDERED: ePHEDrine/0.9% NaCl/PF SYRINGE 50 mg/10 ml ONE (14:43)
[2017-11-30] MEDS ORDERED: Ondansetron HCl/PF 4 MG/2 ML Vial ONE (14:43)
[2017-11-30] MEDS ORDERED: Calcium Chloride 1 GM/10 ML Abboject SYRINGE ONE (14:43)
[2017-11-30] MEDS ORDERED: Heparin 25,000 units/D5W 500 ML ONE (15:18)
[2017-11-30] MEDS ORDERED: Isoproterenol 0.2 MG/1 ML AMP ONE (16:18)
[2017-11-30] MEDS: Docusate 100 MG CAP PO SCH ×2 (16:44→20:30)
[2017-11-30] MEDS: Metamucil PACK PO SCH (16:45)
[2017-11-30] MEDS ORDERED: Iopamidol 370 76% 50 ML VIAL FS ONE (17:02)
[2017-11-30] MEDS ORDERED: Promethazine HCl 25 MG/ML VIAL SLOW IVP PRN (17:28)
[2017-11-30] MEDS ORDERED: Promethazine HCl 25 MG/ML VIAL IM PRN (17:28)
[2017-11-30] MEDS ORDERED: Ondansetron HCl/PF 4 MG/2 ML Vial IVP PRN ×2 (17:28→18:27)
[2017-11-30] MEDS ORDERED: Acetaminophen 325 MG TAB PO PRN (18:27)
[2017-11-30] MEDS ORDERED: Mag-Al 1200 mg/1200 mg/30 ML UDCUP PO PRN (18:27)
[2017-11-30] MEDS ORDERED: diphenhydrAMINE 25 MG CAP PO PRN (18:27)
[2017-11-30] MEDS ORDERED: Temazepam 15 MG CAP PO PRN (18:27)
[2017-11-30] MEDS ORDERED: traMADol HCl 50 MG TAB PO PRN (18:27)
[2017-11-30] MEDS ORDERED: Bisacodyl 10 MG SUPP PR PRN (18:27)
[2017-11-30] MEDS ORDERED: Nitroglycerin 0.4 MG TAB (25 Tab Bottle) SL PRN (18:27)
[2017-11-30] MEDS ORDERED: Bisacodyl 5 MG TAB PO PRN (18:27)
[2017-11-30] MEDS ORDERED: Silver Sulfadiazine 1% Cream 50 GM JAR TOP PRN (18:27)
[2017-11-30] MEDS: Sucralfate 1 GM TAB PO SCH (20:30)
[2017-11-30] MEDS: Famotidine 20 MG TAB PO SCH (20:31)
[2017-11-30] MEDS: Loratadine 10 MG TAB PO SCH (20:31)
[2017-11-30] MEDS: Calcium Carbonate + Vit D 1 TAB PO SCH (20:31)
[2017-11-30] MEDS: Simvastatin 20 MG TAB PO SCH (20:31)
[2017-11-30] MEDS ORDERED: Rivaroxaban 10 MG TAB PO SCH (21:00)
[2017-12-01] MEDS: Sucralfate 1 GM TAB PO SCH ×4 (05:40→17:09)
--- NOTE | 2017-12-01 06:26 | CCLSPC ---
ELECTROPHYSIOLOGY STUDY AND RADIOFREQUENCY ABLATION REPORT DATE OF SERVICE: 11/30/2017 REFERRING PHYSICIAN: Sajan Sherwood M.D. REASONF FOR PROCEDURE: Ms. Blake is a 72-year-old woman with history of atrial flutter, repeat admission to the hospital and underwent an EP study and cavotricuspid isthmus ablation about 3 weeks ago, but had recurrent atrial flutter and readmitted for that. The flutter was sustained, but self- terminating but prior to procedure, the patient also went back into atrial flutter from sinus rhythm, previously ----- Lovenox. PROCEDURE IN DETAIL: The patient received deep sedation per Anesthesia specialist. After adequate level of sedation achieved, the left and right femoral venous area was prepped, draped and anesthetized using subcutaneous lidocaine. With vascular ultrasound guidance, the left and right femoral veins were cannulated. On the left, an 11 Sami short sheath and then a 8 Sami long sheath was introduced. Through these, on the left side, we placed an intracardiac echo probe to the right atrium for monitoring for transseptal effusion throughout the procedure. Through a passer sheath, a Duo Deca catheter was advanced to the right atrium and CS position both. Basic EP study was performed again proving left atrial flutter present. Following that, through the right femoral vein, an SL1 catheter was advanced to the SVC and with the help of a Duc needle transseptal puncture was performed with ICE monitoring x2. One of the transseptals were exchanged over the wire to an Agilis catheter. Both Agilis and SL1 catheters were positioned in left atrium through which a 20 pole Lasso catheter was advanced to the left atrium and 3D map was obtained. The activation mapping of the left atrial flutter was also obtained. Following that, ThermoCool ST-SF bi-directional catheter mapping of the left atrium was performed and eventually we were able to locate it to the posterior wall to the right superior aspect. Fractionated electrograms were seeked out and ablated successfully terminating atrial flutter, which was then nonusuable. Following that, we proceeded with a pulmonary venous isolation isolating both left and right pulmonary veins. The veins remained isolated with Isuprel challenge. Following that no further flutter was inducible and nonsustained. The findings were obtained revealing AV Wenckebach cycle length about 350 milliseconds,[id number]/300, ----- or dual AV chantal physiology was present. Following the case, there was increase in the left lateral border silhouette of the heart and also the ICE catheter demonstrated fluid/fatty tissue in the pericardial area. Although no hemodynamic instability was seen, decision was made to electively perform pericardial centesis to eliminate any effusion and evaluate for any blood in the pericardium. Pericardial centesis was performed using Touhy needle with IV contrast injection. Pericardial space was cannulated and about total of 90 mL of fluid was drained for the pericardium. The fluid was found to be nonbloody but serous. Following that, the pericardial drain was removed. The patient remained hemodynomically stable throughout the study and is in sinus rhythm. No other complications noted. CONCLUSION: 1. Successful localization and ablation of the left atrial flutter. 2. Pulmonary venous isolation performed as well to minimize further atrial arrhythmias. PLAN: Monitor in ICU overnight and resume oral anticoagulation, routine post- ablation care otherwise with Carafate and Protonix as well. POS: MAXIMILIANO CRUZ
--- NOTE | 2017-12-01 08:14 | PRG ---
DATE OF SERVICE: 12/01/2017 The patient was brought back to the CCU last night. Apparently during cardiac ablation there was dameon e concern of pericardial effusion and she had to undergo pericardiocentesis by Dr[facility] Brown. [facility] She did not have a drain left in place. PHYSICAL EXAMINATION: VITAL SIGNS: Temperature 97.7, pulse 94, blood pressure 114/52. 24 hour intake 800, output 2650. HEENT: Unremarkable. NECK: No JVD. CHEST: Clear. CARDIAC: S1 and S2 regular. She has a bandage in place over the xiphoid process. ABDOMEN: Soft, nontender. EXTREMITIES: No edema. ASSESSMENT: 1. Status post cardiac ablation. 2. Status post pericardial effusion and evacuation. PLAN: She is stable from my standpoint to move out of the ICU. Further care per Cardiology and Elec trophysiology.
--- NOTE | 2017-12-01 08:22 | PDOC.PN ---
- Subjective Encounter Start Date: 12/01/17 Encounter Start Time: 08:21 Ma. Blake was seen today in follow-up. She does not have any complaints this morning, She denies chest pain or shortness of breath. - Objective Resuscitation Status: Resuscitation Status FULL:Full Resuscitation MAR Reviewed: Yes Vital Signs & Weight: Vital Signs (12 hours) Temp Pulse Resp Pulse Ox 12/01/17 07:14 97.7 F 97 18 96 12/01/17 07:00 97.7 F Weight Weight 188 lb 11.451 oz Most Recent Monitor Data Heart Rate from ECG 98 NIBP 115/63 NIBP BP-Mean 81 Respiration from ECG 18 SpO2 96 I&O: 11/30/17 12/01/17 12/02/17 06:59 06:59 06:59 Intake Total 360 800 Output Total 2650 110 Balance 360 -1850 -110 Result Diagrams: 11/30/17 05:14 11/30/17 05:14 Phys Exam - Physical Examination HEENT: PERRLA Respiratory: no wheezing, no rales, no rhonchi, clear to auscultation bilateral Cardiovascular: RRR, no significant murmur Gastrointestinal: soft, non-tender, positive bowel sounds Musculoskeletal: edema present trace pedal edema, D.P. pulses present, Dx/Plan (1) Atrial flutter Code(s): I48.92 - UNSPECIFIED ATRIAL FLUTTER Status: Acute Comment: s/p cavotricuspid isthmus ablation 11/10/2017 (2) DM type 2 (diabetes mellitus, type 2) Status: Chronic Qualifiers: (3) Dyslipidemia Code(s): E78.5 - HYPERLIPIDEMIA, UNSPECIFIED Status: Chronic (4) HTN (hypertension) Code(s): I10 - ESSENTIAL (PRIMARY) HYPERTENSION Status: Chronic Qualifiers: (5) Obesity Code(s): E66.9 - OBESITY, UNSPECIFIED Status: Chronic - Plan * Aflutter- she is s/p ablation * Joan is in sinus rhythm * HTN- blood pressure is stable * DM-.blood glucose is stable * Disposition as per EP
[2017-12-01] MEDS: Metamucil PACK PO SCH (08:28)
[2017-12-01] MEDS: Docusate 100 MG CAP PO SCH (08:28)
[2017-12-01] MEDS: Famotidine 20 MG TAB PO SCH (08:28)
[2017-12-01 12:03] VITALS: TEMP 98.2
[2017-12-01] MEDS ORDERED: Potassium Chloride 20 MEQ TAB PO SCH (14:00)
[2017-12-01] MEDS ORDERED: Furosemide 40 MG/4 ML VIAL SLOW IVP SCH (14:00)
[2017-12-01 14:20] LABS: #Lymphocytes 2.1 thou/uL (1.20-3.40); #Neutrophils 7.2 thou/uL (1.40-6.50); %Basophils 0.5 % (0.0-1.0); %Eosinophils 0.4 % (0.0-10.0); %Lymphocytes 19.9 % (21.0-51.0); %Monocytes 9.7 % (0.0-10.0); %Neutrophils 69.5 % (42.0-75.0); Hemoglobin 11.2 g/dL (12.0-16.0); Mean Corpuscular HGB CONC 31.9 g/dL (32.0-36.0); Mean Corpuscular Hemoglobin 26.6 pg (27.0-31.0); Mean Corpuscular Volume 83.4 fl (81.0-99.0); Mean Platelet Volume 8.2 fL (7.4-10.4); Platelet Count 224 thou/uL (130-400); RBC Distribution Width 15.6 % (11.5-14.5); White Blood Cell (WBC) Count 10.3 thou/uL (4.8-10.8)
[2017-12-01 14:39] LABS: Anion Gap 12 mmol/L (10-20); BUN (Urea Nitrogen) 12 mg/dL (9.8-20.1); Calc. Creatinine Clearance 87 mL/min (70-130); Calcium 9.6 mg/dL (7.8-10.44); Carbon Dioxide 25 mmol/L (23-31); Chloride 104 mmol/L (98-107); Estimated GFR-MDRD 73; Glucose 111 mg/dL (83-110); Potassium 3.8 mmol/L (3.5-5.1); Sodium 137 mmol/L (136-145)
--- NOTE | 2017-12-01 15:30 | PDOC.CTH ---
Cardiology Progress Note - Subjective EP progress note Patient doing well post PVI and has no complaints at this time. No pain or tenderness at groin sites. Denies shortness of breath. Morin has been removed and she has been able to void without difficulty. CONSTITUTIONAL: The patient denies any fevers, chills, malaise, night sweats, insomnia, or fluctuations in weight. HEENT: The patient denies any changes in vision, hearing, bleeding from the gums , or double vision. PULMONARY: The patient denies any chronic cough, blood in the sputum, or recent respiratory illness. CARDIOVASCULAR: The patient denies any chest pain, palpitations, shortness of breath, fatigue, passing out, or near passing out. GASTROINTESTINAL: The patient denies nausea, vomiting, diarrhea, or blood in the stool. GENITOURINARY: The patient denies any frequency, hesitancy, blood in the urine, or difficulty urinating. HEMATOLOGICAL: The patient denies any bleeding or blood dyscrasias. NEUROLOGICAL: The patient denies any one-sided weakness, vision changes, speech changes, facial droop, or stroke-like symptoms. INTEGUMENTARY: The patient denies any swelling, bruising, or drainage. - Objective Vital Signs Temp Pulse Resp Pulse Ox 12/01/17 12:00 98.2 F 12/01/17 07:14 97.7 F 97 18 96 12/01/17 07:00 97.7 F Weight 188 lb 11.451 oz 11/30/17 12/01/17 12/02/17 06:59 06:59 06:59 Intake Total 360 800 600 Output Total 2650 1150 Balance 360 -1850 -550 - Physical Examination General/Neuro: alert & oriented x3, NAD Neck: other: (JV slightly engorged at 45 degrees) Heart: PMI normal, RRR - Telemetry Telemetry Rhythm: sinus tachycardia - Labs Result Diagrams: 12/01/17 14:13 12/01/17 14:13 Troponin/CKMB CK-MB (CK-2) 1.1 ng/mL (0-6.6) 11/27/17 21:23 Troponin I 0.012 ng/mL (< 0.028) 11/27/17 21:23 - Assessment/Plan 1. Atrial arrhythmias s/p PVI on 11/30/17. Maintaining Sinus mechanism but tachycardic. 2. Pericardial effusion s/p percardiocentesis after ablation revealing serous fluid. No findings consistent with recurrent effusion or suggestive of tamponade 3. Elevated CHADS-VASc of 4. Continue on Xarelto 20mg QD post ablation. 4. Post ablation tachycardia- possibly linked with fluid status. 40mg IV lasix given and prescription provided to continue x 3 days upon DC. Low dose toprol added. Follow up appointment at [facility] on [facility] on 01/17/18 at 10:45. Patient will receive event monitor from [facility] after discharge sent to her home. OK for discharge from e-presriptions sent to [facility] in [place]: 1. Protonix 40mg PO QD x 14 days 2. Carafate 1 gram PO QID x 14 days 3. KCL 20mEq PO daily x 3 days 4. Lasix 40mg PO daily x 3 days 5. Toprol Xl 25mg PO QD
[2017-12-01] MEDS ORDERED: Rivaroxaban 10 MG TAB PO SCH (17:00)
--- NOTE | 2017-12-02 11:20 | DIS ---
DATE OF ADMISSION: 11/27/2017 DATE OF DISCHARGE: 12/01/2017 DISCHARGE DISPOSITION: Home. DISCHARGE DIAGNOSES: 1. Atrial fibrillation, status post ablation. 2. Diabetes mellitus, type 2. 3. Hypertension. 4. Dyslipidemia. 5. Obesity. DISCHARGE MEDICATIONS: Include simvastatin 20 mg at bedtime, omeprazole 20 mg daily, Naprosyn 500 mg q.6 hours, multivitamin once a day, metformin 1000 mg twice daily, losartan 50 mg daily, fexofenadin e 180 mg at bedtime, diltiazem 240 mg daily, alendronate 70 mg every 7 days, Biotin 1000 mcg daily an d Rogers-3 fish oil daily. PROCEDURES DONE DURING ADMISSION: The patient had a radiofrequency ablation. CODE STATUS: Full code. ALLERGIES: To BACITRACIN. HOSPITAL COURSE: Ms. Blake is a pleasant 72-year-old female who was sent over to the hospital after she was found to be in atrial fibrillation. She was at her primary care physician's office during t hat time. She had no symptoms. She denied any chest pain or shortness of breath. No headache or di zziness, etc. She was admitted and seen by Dr. Brown. She had had 3 previous ablations. This time, the patient underwent a successful localization and ablation of the left atrial flutter as well as pu lmonary venous isolation as well. The patient was monitored in the ICU overnight and was able to be discharged later that evening and to follow up with Dr. Brown as instructed.
== END 2017-12-01 19:20 | disposition home or self-care (01) | DRG 274 ==
LOC: ERS 19:19 → IMCU/EMU 22:12 → 2NO 11-29 17:13 → CCU 11-30 16:37
PROVIDERS: ADMIT Internal Medicine; ATTEND Internal Medicine
PROC: 4A023FZ Measurement of Cardiac Rhythm, Percutaneous Approach (ICD-10-PCS; principal; 2017-11-30)
PROC: 02583ZZ Destruction of Conduction Mechanism, Percutaneous Approach (ICD-10-PCS; 2017-11-30)
PROC: 4A0234Z Measurement of Cardiac Electrical Activity, Percutaneous Approach (ICD-10-PCS; 2017-11-30)
PROC: 02K83ZZ Map Conduction Mechanism, Percutaneous Approach (ICD-10-PCS; 2017-11-30)
PROC: 0W9D3ZZ Drainage of Pericardial Cavity, Percutaneous Approach (ICD-10-PCS; 2017-11-30)
DX: I48.91 Unspecified atrial fibrillation (principal); I31.3 Pericardial effusion (noninflammatory); E11.9 Type 2 diabetes mellitus without complications; E66.01 Morbid (severe) obesity due to excess calories; Z79.84 Long term (current) use of oral hypoglycemic drugs; I10 Essential (primary) hypertension; E78.5 Hyperlipidemia, unspecified; F17.210 Nicotine dependence, cigarettes, uncomplicated; I48.4 Atypical atrial flutter; Z82.49 Family history of ischemic heart disease and other diseases of the circulatory system; R00.0 Tachycardia, unspecified; Z68.39 Body mass index [BMI] 39.0-39.9, adult
CPT/HCPCS: 33025; 36415; 36416; 76942; 80048; 85025; 85027; 85347; 85610; 85730; 86850; 86900; 86901; 87324; 87449; 93005; 93010; 93613; 93623; 93655; 93656; 93662; 96365; 96366; 96372; A4216; C1730; C1731; C1732; C1759; C1769; G8978-GP-CI; G8979-GP-CI; G8980-GP-CI; G8987-GO-CH; G8988-GO-CH; G8989-GO-CH; J1644; J1650; J1940; J2001; J2405; J2704; J2720; J3010; J7050; S0028

== ENCOUNTER 2018-03-01 11:04 | Day surgery (SDC) | payer BC, MEDICARE ==
[~2018-03-01 11:04] MED LIST: PROPOFOL 200 MG/20 ML VIAL ONE
[2018-03-01 13:24] LABS: #Basophils 0.1 thou/uL (0.0-0.2); #Eosinphils 0.2 thou/uL (0.0-0.7); #Lymphocytes 1.9 thou/uL (1.20-3.40); #Monocytes 0.5 thou/uL (0.11-0.59); %Basophils 1.2 % (0.0-1.0); %Eosinophils 3.6 % (0.0-10.0); %Monocytes 8.5 % (0.0-10.0); %Neutrophils 52.8 % (42.0-75.0); Mean Corpuscular Hemoglobin 23.9 pg (27.0-31.0); Mean Corpuscular Volume 77.2 fl (81.0-99.0); Mean Platelet Volume 9.3 fL (7.4-10.4); Platelet Count 251 thou/uL (130-400); RBC Distribution Width 16.7 % (11.5-14.5); Red Blood Cell (RBC) Count 4.17 mill/uL (4.20-5.40); White Blood Cell (WBC) Count 5.6 thou/uL (4.8-10.8)
[2018-03-01 13:30] LABS: PTT 27.5 SEC (22.9-36.1)
[2018-03-01 13:31] LABS: INR-International Normal Ratio 1.1; Prothrombin Time 14.3 SEC (12.0-14.7)
[2018-03-01 13:32] LABS: Anion Gap 13 mmol/L (10-20); BUN (Urea Nitrogen) 10 mg/dL (9.8-20.1); Calc. Creatinine Clearance 0 mL/min (70-130); Calcium 9.4 mg/dL (7.8-10.44); Carbon Dioxide 24 mmol/L (23-31); Chloride 106 mmol/L (98-107); Estimated GFR-MDRD 83; Glucose 101 mg/dL (83-110); Sodium 139 mmol/L (136-145)
[2018-03-01] MEDS ORDERED: PROPOFOL 20 ML ONE (13:54)
--- NOTE | 2018-03-01 16:39 | OP ---
DATE OF SERVICE: 03/01/2018. REFERRING PHYSICIAN: Parth Ovalle M.D. PROCEDURE PERFORMED: Cardioversion. REASON FOR PROCEDURE: Ms. Blake is a 73-year-old woman with a prior history of atypical atrial flut ter post-ablation, now with recurrence, here after a SCOTT which showed no clots and for a cardioversio n. DESCRIPTION OF PROCEDURE: The patient received propofol from Anesthesia specialist. After adequate level of sedation achieved, a synchronized 70 joule shock promptly converted the patient back to sinu s rhythm. CONCLUSION: Successful cardioversion. PLAN: The patient had a recurrence 3 months after her ablation procedure, we will plan to proceed wi th a redo ablation.
--- NOTE | 2018-03-01 19:56 | ECHO ---
REASON FOR PROCEDURE: 73-year-old woman with history of atrial flutter who appears to be an atypical, not isthmus dependent morphology. She has undergone left atrial ablation procedure 11/30/2017. Admitted in atrial flutte r. Pulmonary venous ablation was performed, but now had recurrence of atrial flutter with rapid rates sustained to 120s. She just started Xarelto and is here for SCOTT prior to planned cardioversion. PROCEDURE: The patient received propofol by Anesthesia specialist. After adequate sedation achieved, the standa rd transesophageal echocardiogram probe was passed into the esophagus without difficulty. Patient to lerated the procedure well. RESULTS: Left atrium is mildly enlarged about 4.7 cm in diameter. Left atrial appendage well visualized contains no clots. Left appendage velocities are adequate. Four out of four pulmonary veins were seen without evidence of stenosis. The interatrial septum is without a clear defect. The visualized portion of the ascending and descending aorta without aneurysm, dissection or and mini mal atheroma only. The left ventricular systolic function is preserved. The mitral valve has mild regurgitation. Tricuspid valve has a trace regurgitation. Aortic valve has three leaflets without regurgitation or stenosis. The right sided chamber is nondilated. The pericardial space with a significant fat pad noted. Lipomatous hypertrophy of the interatrial septum is seen. CONCLUSION: 1. No intracardiac clots. 2. Normal systolic function. 3. Moderate left atrial enlargement. 4. Lipomatous hypertrophy of the interatrial septum. 5. Significant fat pad in the pericardial space is noted.
== END 2018-03-01 15:15 | disposition home or self-care (01) ==
LOC: CCL 11:04
PROVIDERS: ATTEND Internal Medicine Cardiovascular Disease
DX: I48.92 Unspecified atrial flutter (principal); E11.9 Type 2 diabetes mellitus without complications; I10 Essential (primary) hypertension; E78.5 Hyperlipidemia, unspecified; E66.9 Obesity, unspecified; Z88.1 Allergy status to other antibiotic agents; Z79.01 Long term (current) use of anticoagulants; Z79.899 Other long term (current) drug therapy; Z79.84 Long term (current) use of oral hypoglycemic drugs
CPT/HCPCS: 80048; 85025; 85610; 85730; 92960; 93005; 93010; 93312; J2704

== ENCOUNTER 2018-11-28 07:49 | Outpatient (CLI) | payer BC, MEDICARE ==
--- NOTE | 2018-11-28 08:56 | BD ---
BONE DENSITOMETRY USING DEXA: HISTORY: Postmenopausal screening for osteoporosis. LUMBAR SPINE BMD (g/cm2) T-SCORE Z-SCORE L1 0.731 -2.4 -0.2 L2 0.764 -2.4 0.0 L3 0.960 -1.1 1.4 L4 0.937 -1.1 1.5 TOTAL 0.860 -1.7 0.7 NECK 0.576 -2.5 -0.3 TOTAL 0.714 -1.9 0.0 There has been interval reduction of 5.6% in the BMD of the lumbar spine and an improvement of 0.2% i n the BMD of the proximal femur since 12/15/2011. IMPRESSION: Osteoporosis. POS: C
== END 2018-11-28 07:50 | disposition home or self-care (01) ==
LOC: BICMAMMO 07:49
PROVIDERS: ATTEND Family Medicine
DX: M81.0 Age-related osteoporosis without current pathological fracture (principal)
CPT/HCPCS: 77080